=== PATIENT | male | born 1960 | race Caucasian/White ===

== ENCOUNTER → 2018-03-23 | Outpatient (CLI) | payer BC ==
--- NOTE | 2018-03-23 10:17 | CT ---
EXAMINATION TYPE: CT abdomen pelvis w con DATE OF EXAM: 03/23/2018 COMPARISON: NONE HISTORY: Lower abdominal pain/pelvic pain-bilaterally CT DLP: 3487 mGycm Automated exposure control for dose reduction was used. TECHNIQUE: Helical acquisition of images from the lung bases through the pelvis have been completed. CONTRAST: Performed with Oral Contrast and with IV Contrast, patient injected with 100 mL of Isovue 300. FINDINGS: LUNG BASES: There is a calcified nodule in the left lower lobe, calcified left hilar nodes are presen t compatible with old granulomatous disease. Coronary artery calcifications are present. No pleural o r pericardial effusion. AORTA: No significant abnormality is appreciated. LIVER/GB: Liver shows low attenuation compatible with hepatic steatosis. Gallbladder is normal. PANCREAS: Some punctate calcifications could be related to chronic pancreatitis, there is no evident mass or pseudocyst formation. SPLEEN: No significant abnormality is seen. ADRENALS: No significant abnormality is seen. KIDNEYS: No significant abnormality is seen. REPRODUCTIVE ORGANS: No significant abnormality is seen BOWEL: Difficult to exclude a mucosal lesion, if bowel surveillance has not been performed, it shoul d be considered. The appendix is normal. There is no bowel obstruction. Suspect right inguinal hernia greater than left containing fat. FREE AIR: No Free Air visible. ASCITES: None visible. PELVIC ADENOPATHY: None visualized. RETROPERITONEAL ADENOPATHY: No Retroperitoneal Adenopathy visible. URINARY BLADDER: No significant abnormality is seen. OSSEOUS STRUCTURES: Degenerative disc disease noted in the lumbar spine IMPRESSION: INGUINAL HERNIA BILATERALLY AND ADDITIONAL FINDINGS ABOVE, CORRELATE
== END | disposition home or self-care (01) ==
LOC: RADCTMAIN 08:01
PROVIDERS: ATTEND Family Medicine
DX: K40.90 Unilateral inguinal hernia, without obstruction or gangrene, not specified as recurrent (principal)
CPT/HCPCS: 74177; Q9967

== ENCOUNTER → 2020-05-15 | Outpatient (CLI) | payer BC ==
--- NOTE | 2020-05-15 19:57 | HP ---
HISTORY AND PHYSICAL Patient to be admitted to undergo cardiac catheterization on 05/17/2020. Mr. Escobar is a 59-year-old male with a history of diabetes and hypertension who has been complaining of chest pressure that has been going on for a year, but more frequently now, with some symptoms of dyspnea. He has no prior cardiac history. He denies any dizziness or palpitations. He denies any PND, orthopnea or peripheral edema. He underwent a stress echocardiogram when he had chest discomfort on the treadmill with EKG changes and anteroapical and anteroseptal transient hypokinesis. He has no history of smoking. His coronary risk factors are remarkable for hypertension and diabetes. MEDICATIONS: His medications include aspirin, losartan HCT and metformin in addition to omeprazole. REVIEW OF SYSTEMS: RESPIRATORY SYSTEM: He has no documented history of asthma, emphysema or bronchitis. GI SYSTEM: He has history of gastroesophageal reflux disease. No recent GI bleeding. SYSTEM: No dysuria or hematuria. NERVOUS SYSTEM: No stroke or seizure. PHYSICAL EXAMINATION: This patient is a 59-year-old male, alert, oriented, in no apparent distress. Blood pressure 138/74 with a heart rate in the 80s. HEAD: Normocephalic. Eyes: Sclerae nonicteric. NECK: Good carotid upstroke. No bruit. No jugular venous distention. LUNGS: Clear to auscultation. HEART: Regular rate and rhythm. S1, S2. No S3, with a systolic ejection murmur. No diastolic murmur. No rub. ABDOMEN: Soft, nontender. Positive bowel sounds. No organomegaly. EXTREMITIES: No edema. Intact distal pulses. IMPRESSION: 1. Chest discomfort consistent with cardiac etiology with positive stress test in a patient with known history of diabetes. 2. Hypertension. 3. Diabetes. RECOMMENDATION: I have recommended proceeding with coronary angiography to assess his status and guide his treatment. The rationale behind the procedure, its risks and complication were discussed with the patient, who is in full understanding and agreement. The patient will be initiated on Lopressor 25 mg twice a day. MMODL / IJN: [id number] /
--- NOTE | 2020-05-16 10:14 | ECHOS ---
STRESS ECHOCARDIOGRAM LUMASON: - Vial INDICATIONS: MEDICATIONS: Metformin, Losartan, Omeprazole. BASELINE HEART RATE: 87 BASELINE BLOOD PRESSURE: 138/74 MAXIMUM HEART RATE: 159 MAXIMUM BLOOD PRESSURE: 200/82 85% MPHR: 138 100% MPHR: 162 METS: 8.7 MAXIMUM STAGE REACHED: 3 TOTAL EXERCISE TIME: 7:15 CLINICAL INFORMATION: Baseline rhythm is a sinus mechanism at a rate of 87, normal axis and intervals, normal echocardiogram. Baseline blood pressure 138/74 mmHg. Patient exercised per Yazan protocol for 7 minutes, 15 seconds reaching peak rate of 159 beats per minute which is equal to 98% maximum predicted heart rate. Peak blood pressure 200/82 mmHg. Test was terminated due to fatigue. There was mild chest discomfort. Electrocardiograph monitoring revealed frequent single PVCs. There was a [address]-segment depression in the inferolateral leads that improved gradually in recovery. FINDINGS: Baseline echocardiogram revealed normal wall motion. At peak exercise, there was a moderate-size area of hypokinesis involving the anteroapical and anteroseptal wall with improvement in recovery. IMPRESSION: 1. Average exercise tolerance with frequent PVCs with abnormal electrocardiographic stress testing and chest discomfort. 2. Abnormal stress echocardiogram with evidence of stress-induced ischemia involving the anteroapical and anteroseptal wall, those findings are consistent with stress- induced ischemia in the LAD territory. MMKENNETH / IJN: [id number] / MTDD
== END | disposition home or self-care (01) ==
LOC: RADNMMAIN 09:02
PROVIDERS: ATTEND Family Medicine
DX: I10 Essential (primary) hypertension (principal); E11.9 Type 2 diabetes mellitus without complications
CPT/HCPCS: 93351

== ENCOUNTER 2020-05-17 09:07 | Day surgery (SDC) | payer BC ==
[2020-05-16 08:59] VITALS: BMI 32.8
[~2020-05-17 09:07] MED LIST: ALPRAZolam 0.25 MG TAB PO PRN; ALPRAZolam 0.5 MG TAB PO PRN; ASPIRIN 325 MG TAB PO STA; ATORVASTATIN 80 MG TAB PO STA; NITROGLYCERIN SL TABS 0.4 MG TAB SUBLINGUAL PRN; SODIUM CHLORIDE 0.9% 1,000 ML in EMPTY BAG 1 BAG IV ONE
[2020-05-17 10:01] LABS: Glucose,Whole Blood 135 mg/dL (75-99)
[2020-05-17 10:11] LABS: Basophils # (A) 0.1 k/uL (0-0.2); Basophils % (A) 1 %; Eosinophils # (A) 0.4 k/uL (0-0.7); Eosinophils % (A) 5 %; HCT 46.4 % (39.0-53.0); HGB 15.8 gm/dL (13.0-17.5); Lymphocytes # (A) 1.7 k/uL (1.0-4.8); Lymphocytes % (A) 23 %; MCH 30.3 pg (25.0-35.0); MCHC 34.2 g/dL (31.0-37.0); MCV 88.7 fL (80.0-100.0); Mean Platelet Volume 7.6; Monocytes # (A) 0.5 k/uL (0-1.0); Monocytes % (A) 6 %; Neutrophils # (A) 4.7 k/uL (1.3-7.7); Neutrophils % (A) 63 %; Platelet Count 223 k/uL (150-450); RBC 5.23 m/uL (4.30-5.90); RDW 12.9 % (11.5-15.5); WBC 7.5 k/uL (3.8-10.6)
[2020-05-17] MEDS ORDERED: VERAPAMIL 2.5 MG/ML 2 ML AMP ONE (10:11)
[2020-05-17] MEDS ORDERED: fentaNYL (PF) 50 MCG/ML 2 ML AMP ONE (10:11)
[2020-05-17] MEDS ORDERED: HEPARIN SODIUM 1,000 UN/ML (10ML VL) ONE (10:11)
[2020-05-17] MEDS ORDERED: LIDOCAINE 1% INJ 10MG/ML (20 ML MDV) ONE (10:11)
[2020-05-17 10:16] LABS: African American GFR (CKD) >90 (>60 ml/min/1.73 sqM); Anion Gap 7 mmol/L; Blood Urea Nitrogen 16 mg/dL (9-20); Calcium 9.6 mg/dL (8.4-10.2); Carbon Dioxide 26 mmol/L (22-30); Chloride 105 mmol/L (98-107); Glucose 134 mg/dL (74-99); Non-African American GFR(CKD) >90 (>60 ml/min/1.73 sqM); Potassium 4.4 mmol/L (3.5-5.1); Sodium 138 mmol/L (137-145)
[2020-05-17] MEDS ORDERED: LIDOCAINE 1% INJ 10MG/ML (20 ML MDV) SQ ONE ×2 (10:51→10:58)
[2020-05-17] MEDS ORDERED: fentaNYL (PF) 50 MCG/ML 2 ML AMP IVP ONE (10:51)
[2020-05-17] MEDS ORDERED: MIDAZOLAM 2 MG/2 ML VIAL IVP ONE (10:51)
[2020-05-17] MEDS ORDERED: VERAPAMIL SYRINGE (5 MG/10 ML) INTRAARTER ONE (10:53)
[2020-05-17] MEDS ORDERED: PRASUGREL 10 MG TAB ONE ×2 (11:10)
[2020-05-17] MEDS ORDERED: BIVALIRUDIN BOLUS 250 MG/50 ML IV ONE (11:10)
[2020-05-17] MEDS ORDERED: BIVALIRUDIN 250 MG in SODIUM CHLORIDE 0.9% 50 ML IV ONE (11:10)
[2020-05-17] MEDS ORDERED: PRASUGREL 10 MG TAB PO ONE (11:15)
[2020-05-17] MEDS ORDERED: NITROGLYCERIN 1000MCG/10ML SYRINGE INTRACORON ONE (11:20)
[2020-05-17] MEDS ORDERED: IOPAMIDOL-370 125ML BTL INJ ONE (11:27)
[2020-05-17] MEDS ORDERED: IOPAMIDOL-370 100ML BTL INJ ONE (11:30)
[2020-05-17] MEDS ORDERED: NITROGLYCERIN SL TABS 0.4 MG TAB SUBLINGUAL PRN (11:58)
[2020-05-17] MEDS ORDERED: ATROPINE SULFATE 0.1 MG/ML 10ML SYRINGE IV PRN (11:58)
[2020-05-17] MEDS ORDERED: RX INFO: IV CONTRAST WAS GIVEN 1 EACH MISC MISCELLANE PRN (11:58)
[2020-05-17] MEDS ORDERED: MAG HYDROX/AL HYDROX/SIMETH 30 ML CUP PO PRN (11:58)
[2020-05-17] MEDS ORDERED: ZOLPIDEM 5 MG TAB PO PRN (11:58)
[2020-05-17] MEDS ORDERED: SODIUM CHLORIDE 0.9% 1,000 ML IV SCH (12:00)
[2020-05-17 15:13] LABS: Glucose,Whole Blood 119 mg/dL (75-99)
--- NOTE | 2020-05-17 15:44 | PTCA ---
PERCUTANEOUSTRANS CORORONARY ANGIOGRAPHY Mr. Escobar is a 59-year-old male with a known history of hypertension and diabetes mellitus who presented with symptoms of angina pectoris and abnormal stress test. He had critical stenosis involving the proximal LAD. Discussion was held with the patient regarding coronary artery bypass grafting versus percutaneous revascularization. He was in favor of percutaneous revascularization. The procedure, its risks and complications were discussed with the patient, who was in full understanding and agreement. PROCEDURE DESCRIPTION: A 6-Icelandic FR4 guiding catheter was introduced into the system. After cannulating the left main, a 0.014 balanced medium-weight J-wire was advanced across the lesion, positioned distally, then a 2.5 x 12 mm Emerge NC balloon was advanced and two inflations to a maximum of 10 atmospheres were done. Following that the balloon was removed and a 3.25 x 18 mm Xience Belle stent was deployed and post-dilated at 16 atmospheres. Following that the balloon was removed and a 3.5 x 15 mm NC Emerge balloon was advanced and one inflation at 14 atmospheres was done. After the last inflation, after appropriate wait, the balloon and the guidewire were withdrawn back into the guiding catheter. Images were obtained and repeated. Those images reveal stable successful stenting. At that point, the guiding catheter, the balloon and the guidewire were removed. The sheath was sutured in place. The right radial sheath was removed and hemostasis was obtained with deployment of a TR band. There was no immediate complication. Patient was returned to his room in stable condition. Of note, the patient received Angiomax per protocol as well as oral loading dose of Effient. RESULTS: Successful stenting of the proximal LAD with reduction of stenosis from 95% to 0%. RECOMMENDATION: Patient will be continued on aspirin, Effient and statin. The importance of dual antiplatelet treatment was discussed with the patient and his family, and they are in full understanding and agreement. Duration of sedation was 49 minutes. MMODL / IJN: [id number] /
--- NOTE | 2020-05-17 15:59 | LTR ---
May 17, 2020 To: Dr. Ej Navarro Regarding: Martin Escobar (62) Dear Dr. Navarro: I had the pleasure of performing cardiac catheterization and coronary angioplasty and stenting on Mr. Escobar at [facility] on May 17, and a full copy of the procedure note will be forwarded to you. In brief, he was found to have a chronically occluded right coronary artery with critical stenosis involving the proximal LAD and underwent successful stenting of that vessel. I am hopeful that this procedure will stabilize his status. Thank you again for allowing me to participate in his care. Please feel free to call with any questions. Sincerely yours, Jean Denis M.D. INGRIS / MAGDALENO: [id number] /
--- NOTE | 2020-05-17 16:26 | CC ---
CARDIAC CATHETERIZATION REPORT Mr. Escobar is a 59-year-old male with known history of diabetes, hypertension, who has been complaining of exertional chest discomfort, underwent a stress echocardiogram where he had EKG changes as well as anterior and anteroapical wall ischemia. In view of that, recommendation made regarding cardiac catheterization. The procedures, risks, and complication were discussed with the patient who is in full understanding and agreement. PROCEDURE: Patient was brought to lab coordinator in a fasting semi-sedated state after receiving fentanyl and Benadryl and achieving moderate conscious sedated state using Xylocaine anesthesia and Seldinger technique, a 6-Estonian sheath was introduced in the right radial artery. A 5-Estonian 4 bend right Nahum catheter was introduced. Patient had severe spasm and an episode of asystole with vasovagal at that time. The catheter was removed and using Xylocaine anesthesia and Seldinger technique, a 6-Estonian sheath was introduced in the right femoral artery. Selective right and left coronary angiography performed using 6-Estonian 4 bend right and left Nahum catheter. Multiple views of the coronary artery including hemiaxial views were obtained. Following that, the right Nahum was used to cross the aortic valve and left ventricular end-diastolic pressure was calculated following that catheters were removed, images were reviewed. FINDINGS: FLUOROSCOPY: There was significant calcification involving the proximal left anterior descending artery. LEFT MAIN: This is a large-sized vessel, bifurcating into left circumflex, left anterior descending artery. Left main coronary artery has no evidence of high-grade stenosis. LEFT ANTERIOR DESCENDING ARTERY: This is a large-sized vessel, reaching toward the apex with a wraparound apex segment giving rise to 2 diagonal branch of moderate caliber. In the proximal segment at the takeoff of the first diagonal branch, which is the smallest of the two, he had a 95%-99% stenosis. The rest of the vessel has mild intimal disease of 20% to 30% without any evidence of high-grade stenosis. LEFT CIRCUMFLEX: This is a non dominant vessel, large in caliber, giving rise to 2 obtuse marginal branch. Proximally, the left circumflex has a 20% to 30% plaque. The rest of the vessel has no high-grade stenosis. RIGHT CORONARY ARTERY: This vessel is diffusely diseased and totally occluded in mid segment with minimal antegrade flow. COLLATERALS: There is collateral from the left coronary system toward the right PDA and PLV. LEFT VENTRICULOGRAM: This was not performed. HEMODYNAMICS: There was no gradient across the aortic valve. The left ventricular end- diastolic pressure was 14-18 mmHg. CONCLUSION: 1. Calcified proximal LAD. 2. Critical stenosis involving the proximal LAD. 3. Mild disease in the left circumflex. 4. Chronically occluded right coronary artery with collateral from the left coronary system. RECOMMENDATION: In view of finding anatomy of the chest, the patient both option of coronary bypass grafting or percutaneous revascularization. He was favor percutaneous revascularization. The procedures, risks, and complications were discussed with the patient who is in full understanding and agreement. MMODL / IJN: [id number] /
[2020-05-17] MEDS: METOPROLOL TARTRATE 25 MG TAB PO SCH (20:51)
[2020-05-17] MEDS ORDERED: ATORVASTATIN 80 MG TAB PO SCH (21:00)
[2020-05-17] MEDS ORDERED: EZETIMIBE 10 MG TAB PO SCH (21:00)
[2020-05-17 21:33] LABS: Glucose,Whole Blood 154 mg/dL (75-99)
[2020-05-18 06:32] LABS: African American GFR (CKD) >90 (>60 ml/min/1.73 sqM); Anion Gap 5 mmol/L; Blood Urea Nitrogen 15 mg/dL (9-20); Calcium 9.5 mg/dL (8.4-10.2); Carbon Dioxide 26 mmol/L (22-30); Chloride 107 mmol/L (98-107); Glucose 123 mg/dL (74-99); Non-African American GFR(CKD) >90 (>60 ml/min/1.73 sqM); Potassium 4.2 mmol/L (3.5-5.1); Sodium 138 mmol/L (137-145)
[2020-05-18] MEDS ORDERED: PANTOPRAZOLE 40 MG TABLET PO SCH (07:30)
[2020-05-18] MEDS: METOPROLOL TARTRATE 25 MG TAB PO SCH (08:10)
[2020-05-18 08:43] VITALS: BP 131/77; PULSE 71; RESP 16; TEMP 98.3
[2020-05-18] MEDS ORDERED: ASPIRIN 81 MG PO SCH (09:00)
[2020-05-18] MEDS ORDERED: PRASUGREL 10 MG TAB PO SCH (09:00)
[2020-05-18] MEDS ORDERED: LOSARTAN 50 MG TAB PO SCH (09:00)
--- NOTE | 2020-05-18 10:29 | PN ---
PROGRESS NOTE Mr. Escobar is a 59-year-old male with history of diabetes, history of hypertension and hyperlipidemia who presented with symptoms of angina pectoris, had an abnormal stress echocardiogram, underwent cardiac catheterization, was found to have a chronically occluded right coronary artery with critical stenosis in the proximal LAD, underwent stenting of the LAD. He is feeling better this morning. He is ambulating without chest pain. He denies any dizziness or palpitation. He denies any nausea. He denies any cough or fever. He is in sinus mechanism. Continues to be on aspirin once a day, Effient 10 mg daily, Zetia 10 mg daily, Lipitor 80 mg daily, losartan 100 mg daily, hydrochlorothiazide 25 mg daily, and metoprolol tartrate 25 mg twice a day. PHYSICAL EXAMINATION: Blood pressure 135/70 with a heart in 70. LUNGS: Clear. HEART: Regular rate and rhythm, S1, S2. No S3. No rub. ABDOMEN: Soft, nontender. EXTREMITIES: No edema. Right radial pulse intact. EKG revealed no acute changes. LAB DATA: Revealed BUN and creatinine 15 and 0.7, potassium 4.2. IMPRESSION: 1. Status post stenting of the LAD. 2. Chronic occluded right coronary artery. 3. Hypertension. 4. Hyperlipidemia. 5. Diabetes mellitus. RECOMMENDATION: Patient will be discharged home today and followed as an outpatient. MMKENNETH / SOURAVN: [id number] /
== END 2020-05-18 09:14 | disposition home or self-care (01) ==
LOC: CATHCVL 09:07 → 3NCARDOBS 15:22 → CATHCVL 05-18 09:14
PROVIDERS: ATTEND Internal Medicine Interventional Cardiology
DX: I25.10 Atherosclerotic heart disease of native coronary artery without angina pectoris (principal); I25.82 Chronic total occlusion of coronary artery; E11.9 Type 2 diabetes mellitus without complications; I10 Essential (primary) hypertension; E78.5 Hyperlipidemia, unspecified; Z79.82 Long term (current) use of aspirin; Z79.899 Other long term (current) drug therapy
CPT/HCPCS: 93458; 85347; 80048 ×2; 85025; C9600; C1769 ×4; C1725 ×2; C1894 ×2; C1874; J2250; J2001; J3010; J0583; Q9967 ×2

== ENCOUNTER → 2021-08-08 | Outpatient (CLI) | payer BC ==
[~2021-08-08] MED LIST changes: -ALPRAZolam 0.25 MG TAB PO PRN; -ALPRAZolam 0.5 MG TAB PO PRN; -ASPIRIN 325 MG TAB PO STA; -ATORVASTATIN 80 MG TAB PO STA; +BAMLANIVIMAB (EUA) 700 MG, ETESEVIMAB (EUA) 1,400 MG in SODIUM CHLORIDE 0.9% 50 ML IVPB ONE; -NITROGLYCERIN SL TABS 0.4 MG TAB SUBLINGUAL PRN; -SODIUM CHLORIDE 0.9% 1,000 ML in EMPTY BAG 1 BAG IV ONE; +SODIUM CHLORIDE 0.9% 50 ML IVPB ONE; +SODIUM CHLORIDE 0.9% 500 ML 500 ML in EMPTY BAG 1 BAG IV PRN
[2021-08-08 07:59] VITALS: RESP 16
[2021-08-08 09:45] VITALS: BP 141/84; PULSE 99; TEMP 98.8
== END | disposition home or self-care (01) ==
LOC: PROCWHC3 07:34
PROVIDERS: ATTEND Nurse Practitioner Adult Health
DX: U07.1 COVID-19 (principal)
CPT/HCPCS: 96360; J3490; M0245

== ENCOUNTER 2024-03-12 07:45 | Day surgery (SDC) | payer OTHER ==
[~2024-03-12 07:45] MED LIST changes: +ALPRAZolam 0.25 MG TAB PO PRN; +ALPRAZolam 0.5 MG TAB PO PRN; +ASPIRIN 325 MG TAB PO ONE; -BAMLANIVIMAB (EUA) 700 MG, ETESEVIMAB (EUA) 1,400 MG in SODIUM CHLORIDE 0.9% 50 ML IVPB ONE; +NITROGLYCERIN SL TABS 0.4 MG TAB SUBLINGUAL PRN; +SODIUM CHLORIDE 0.9% 1,000 ML in EMPTY BAG 1 BAG IV SCH; -SODIUM CHLORIDE 0.9% 50 ML IVPB ONE; -SODIUM CHLORIDE 0.9% 500 ML 500 ML in EMPTY BAG 1 BAG IV PRN
[2024-03-12 08:18] VITALS: RESP 16; TEMP 97.7
[2024-03-12] MEDS: SODIUM CHLORIDE 0.9% 1,000 ML IV ONE (08:18)
[2024-03-12] MEDS ORDERED: VERAPAMIL 2.5 MG/ML 2 ML AMP ONE (09:07)
[2024-03-12] MEDS ORDERED: LIDOCAINE 1% INJ 10MG/ML (20 ML MDV) ONE (09:07)
[2024-03-12] MEDS ORDERED: fentaNYL (PF) 50 MCG/ML 2 ML AMP ONE (09:19)
[2024-03-12] MEDS: MIDAZOLAM 2 MG/2 ML VIAL IVP ONE (09:42)
[2024-03-12] MEDS: fentaNYL (PF) 50 MCG/ML 2 ML AMP IVP ONE (09:42)
[2024-03-12] MEDS ORDERED: HEPARIN SODIUM 1,000 UN/ML (10ML VL) ONE (09:44)
[2024-03-12] MEDS: LIDOCAINE 1% INJ 10MG/ML (20 ML MDV) SQ ONE (09:46)
[2024-03-12] MEDS: VERAPAMIL SYRINGE (5 MG/10 ML) INTRAARTER ONE (09:49)
[2024-03-12] MEDS: HEPARIN SODIUM 1,000 UN/ML (10ML VL) IVP ONE (09:55)
[2024-03-12] MEDS: IOPAMIDOL-370 200ML BTL INJ ONE (10:15)
[2024-03-12] MEDS ORDERED: RX INFO: IV CONTRAST WAS GIVEN 1 EACH MISC MISCELLANE PRN (10:17)
--- NOTE | 2024-03-12 10:22 | P.CARDCATH ---
Date of Procedure: 03/12/24 Description of Procedure: Cardiac Catheterization: The patient is a 63-year-old male with known history of CAD, hypertension, hyperlipidemia and diabetes mellitus who has been complaining of progressive dyspnea on exertion and had an abnormal MPI. Recommendations were made regarding cardiac catheterization, the risks and the complications were discussed with the patient who is in full understanding and agreement. Procedure Description: Patient was brought to screedman/laborer in fasting semi-sedated state after receiving Fentanyl and Benadryl achieiving moderate conscious sedated state. Using Xylocaine Anesthesia and modified Seldinger technique, a 6-Macedonian sheath was introduced in the right radial artery . Subsequently, selective coronary angiography was performed using a 5-Macedonian 3.5 bend Nahum catheter. Multiple views of the coronary artery including hemiaxial views were obtained. The 5 Macedonian pigtail catheter was used to cross the aortic valve and LVEDP was calculated. Following that, catheter and sheath were removed. Hemostasis was obtained with deployment of vascular band . There was no immediate complication. Patient was returned to room in stable condition. Of note, the patient received a total of 4500 units of intravenous heparin as well as intra-arterial verapamil. Findings: Left main: This is a large size vessel, bifurcating to left circumflex and LAD, left main has no obstructive disease LAD: This is a large size vessel, reaching to the apex with a wraparound apex segment giving rise to a moderately sized diagonal branch in the midsegment. The LAD proximally has a stent that has a 10 to 20% in-stent restenosis the rest of the vessel has no high-grade stenosis Left circumflex: This is a large codominant vessel giving rise to a large obtuse marginal branch and distally branching to a PDA and a PLV. The left circumflex prior to the takeoff of the obtuse marginal branch has a 40% plaque with no progression compared to 2020. RCA: This is a codominant vessel, chronically occluded in the proximal segment with no significant antegrade flow and collateral from the left system to the PDA and the PLV Left Ventriculogram: Not performed Hemodynamics: There was no gradient across aortic valve, LVEDP was 14-16 mmHg Conclusion: 1. Chronically occluded proximal RCA with collateral from the left system 2. Patent stent in the proximal LAD with no significant in-stent restenosis 3. Mild to moderate disease in the proximal left circumflex with no progression 4. Codominant system Recommendations: I have recommended to continue medical therapy with aggressive coronary risks modification. There is no progression of disease in the left circumflex territory. The findings and the recommendations were discussed with the patient and the family and they were in full understanding and agreement. Duration of sedation is 20 minutes.
[2024-03-12] MEDS ORDERED: SODIUM CHLORIDE 0.9% 1,000 ML IV SCH (10:30)
[2024-03-12 16:07] VITALS: BP 115/69; PULSE 77
[2024-03-12] MEDS ORDERED: EZETIMIBE 10 MG TAB PO SCH (21:00)
[2024-03-12] MEDS ORDERED: SERTRALINE 25 MG TAB PO SCH (21:00)
[2024-03-12] MEDS ORDERED: METOPROLOL TARTRATE 25 MG TAB PO SCH (21:00)
[2024-03-12] MEDS ORDERED: MONTELUKAST 10 MG TAB PO SCH (21:00)
[2024-03-13] MEDS ORDERED: ASPIRIN 81 MG PO SCH (09:00)
[2024-03-13] MEDS ORDERED: LOSARTAN 50 MG TAB PO SCH (09:00)
[2024-03-15 06:44] LABS: Glucose,Whole Blood 101 mg/dL (70-110)
== END 2024-03-12 14:08 | disposition home or self-care (01) ==
LOC: CATHCVL 07:45
PROVIDERS: ATTEND Internal Medicine Interventional Cardiology
DX: I25.10 Atherosclerotic heart disease of native coronary artery without angina pectoris (principal); I10 Essential (primary) hypertension; E78.5 Hyperlipidemia, unspecified; E11.9 Type 2 diabetes mellitus without complications; Z95.5 Presence of coronary angioplasty implant and graft; Z79.84 Long term (current) use of oral hypoglycemic drugs; Z79.899 Other long term (current) drug therapy
CPT/HCPCS: 93458; C1769 ×3; C1894; J2250; J2001; J3010; J1644; Q9967

== ENCOUNTER 2025-02-01 20:27 | Inpatient (IN) | payer BC, OTHER ==
--- NOTE | 2025-02-01 20:42 | ED ---
SOB HPI - General Chief Complaint: Shortness of Breath Stated Complaint: IRMA Time Seen by Provider: 02/01/25 20:37 Source: patient, RN notes reviewed, old records reviewed Mode of arrival: ambulatory Limitations: no limitations - History of Present Illness Initial Comments: This is a 64-year-old male to the ER for evaluation this patient presents today for evaluation of severe shortness of breath Long recent car ride but now with severe fever tachycardia and dyspnea with hypoxia. Patient has been on home O2 since arrival [place] with coronavirus. Patient comes to the ER today as symptoms have just progressively worsened MD Complaint: shortness of breath, cough, anxiety -: week(s) Severity: severe Severity scale (1-10): 9 Quality: aching Consistency: constant Improves With: nothing Worsens With: nothing Known History Of: COPD, asthma Context: recent URI, recent illness Associated Symptoms: chest pain, pain with inspiration, cough, sputum production Treatments Prior to Arrival: none - Related Data Home Medications Medication Instructions Recorded Confirmed Ezetimibe [Zetia] 10 mg PO DAILY 01/05/16 02/02/25 Losartan Potassium 100 mg PO DAILY 05/16/20 02/02/25 Omeprazole 40 mg PO PC-SUPPER 05/16/20 02/02/25 Thiamine HCl [Vitamin B-1] 100 mg PO DAILY 05/16/20 02/02/25 Metoprolol Tartrate [Lopressor] 50 mg PO BID 05/17/20 02/02/25 Fluticasone/Umeclidin/Vilanter 1 puff INHALATION RT-DAILY 03/10/24 02/02/25 [Trelegy Ellipta 200-62.5-25] Montelukast [Singulair] 10 mg PO DAILY 03/10/24 02/02/25 Rosuvastatin Calcium 20 mg PO DAILY 03/10/24 02/02/25 Albuterol Sulfate [Albuterol 1 puff INHALATION RT-Q4H PRN 02/02/25 02/02/25 Sulfate Hfa] Previous Rx's Medication Instructions Recorded Aspirin EC [Ecotrin Low Dose] 81 mg PO DAILY #30 tablet. 01/06/16 Nitroglycerin Sl Tabs [Nitrostat] 0.4 mg SUBLINGUAL Q5M PRN #25 tab 05/18/20 Cefdinir 300 mg PO Q12HR 5 Days #10 cap 02/04/25 predniSONE See Taper PO DAILY 20 Days #50 tab 02/04/25 Allergies Allergy/AdvReac Type Severity Reaction Status Date / Time atorvastatin [From Lipitor] AdvReac Unknown Verified 02/02/25 09:38 Review of Systems ROS Statement: Those systems with pertinent positive or pertinent negative responses have been documented in the HPI. ROS Other: All systems not noted in ROS Statement are negative. Past Medical History Past Medical History: Diabetes Mellitus, GERD/Reflux, Hyperlipidemia, Hypertension Additional Past Medical History / Comment(s): HAD STRESS TEST 05/15/20-GETS SOB MORE FREQ. LATELY, POSSIBLE UPPER HEART BLOCKAGE History of Any Multi-Drug Resistant Organisms: None Reported Past Surgical History: No Surgical Hx Reported Additional Past Surgical History / Comment(s): lasix EYE SX. BILAT CATARACT REMOVAL WITH LENS IMPLANT. COLONOSCOPY Past Anesthesia/Blood Transfusion Reactions: No Reported Reaction Date of Last Stent Placement:: 2019 Past Psychological History: No Psychological Hx Reported Smoking Status: Never smoker Past Alcohol Use History: None Reported Past Drug Use History: None Reported - Past Family History Father Family Medical History: Cancer Additional Family Medical History / Comment(s): AT AGE 86 WITH PROSTATE CA Mother Family Medical History: Myocardial Infarction ([place]) General Exam Limitations: no limitations General appearance: alert, in no apparent distress, anxious Head exam: Present: atraumatic, normocephalic, normal inspection Eye exam: Present: normal appearance, PERRL, EOMI. Absent: scleral icterus, conjunctival injection, periorbital swelling ENT exam: Present: normal exam, mucous membranes moist Neck exam: Present: normal inspection. Absent: tenderness, meningismus, lymphadenopathy Respiratory exam: Present: normal lung sounds bilaterally, respiratory distress, wheezes, accessory muscle use, decreased breath sounds, prolonged expiratory. Absent: rales, rhonchi, stridor Cardiovascular Exam: Present: normal rhythm, tachycardia, normal heart sounds. Absent: systolic murmur, diastolic murmur, rubs, gallop, clicks GI/Abdominal exam: Present: soft, normal bowel sounds. Absent: distended, tenderness, guarding, rebound, rigid Extremities exam: Present: normal inspection, full ROM, normal capillary refill. Absent: tenderness, pedal edema, joint swelling, calf tenderness Back exam: Present: normal inspection Neurological exam: Present: alert, oriented X3, CN II-XII intact Psychiatric exam: Present: normal affect, normal mood Skin exam: Present: warm, dry, intact, normal color. Absent: rash Course Vital Signs 02/01/25 02/01/25 02/01/25 20:28 20:39 20:46 Temperature 102.0 F H Pulse Rate 131 H 124 H Respiratory 34 H 24 Rate Blood Pressure 157/100 O2 Sat by Pulse 79 L Oximetry 02/01/25 02/01/25 02/01/25 21:05 21:10 22:14 Temperature 103.0 F H 102.5 F H Pulse Rate 125 H 125 H 126 H Respiratory 22 20 Rate Blood Pressure 152/93 130/87 O2 Sat by Pulse 94 L Oximetry 02/01/25 02/01/25 02/02/25 23:13 23:24 02:06 Temperature 98.3 F Pulse Rate 133 H 130 H 113 H Respiratory 18 Rate Blood Pressure 140/90 O2 Sat by Pulse 92 L Oximetry 02/02/25 02/02/25 02/02/25 06:45 08:54 12:48 Temperature 97.1 F L Pulse Rate 107 H 105 H 92 Respiratory 18 18 18 Rate Blood Pressure 114/80 127/92 144/99 O2 Sat by Pulse 95 95 95 Oximetry 02/02/25 02/02/25 16:55 17:08 Temperature 97.5 F L Pulse Rate 98 Respiratory 18 Rate Blood Pressure 148/90 O2 Sat by Pulse 97 Oximetry - Reevaluation(s) Reevaluation #1: 02/01/25 22:28 Medical records reviewed Reevaluation #2: 02/01/25 22:28 Patient symptoms mildly improved Reevaluation #3: 02/01/25 22:28 Patient informed of results questions answered Reevaluation #4: Was pt. sent in by a medical professional or institution (, PA, CAR WASHER, urgent care, hospital, or detention...) When possible be specific @ -no Did you speak to anyone other than the patient for history (EMS, parent, family, police, friend...)? What history was obtained from this source @ -no Did you review nursing and triage notes (agree or disagree)? Why? @ -agree Are old charts reviewed (outside hosp., previous admission, EMS record, old EKG, old radiological studies, urgent care reports/EKG's, detention records)? Report findings @ -yes Differential Diagnosis (chest pain, altered mental status, abdominal pain women, abdominal pain men, vaginal bleeding, weakness, fever, dyspnea, syncope, headache, dizziness, GI bleed, back pain, seizure, CVA, palpatations, mental health, musculoskeletal)? @ -prior EKG interpreted by me (3pts min.). @ -yes X-rays interpreted by me (1pt min.). @ -yes multifocal bilateral pneumonia CT interpreted by me (1pt min.). @ -no U/S interpreted by me (1pt. min.). @ -no What testing was considered but not performed or refused? (CT, X-rays, U/S, labs)? Why? @ -none What meds were considered but not given or refused? Why? @ -none Did you discuss the management of the patient with other professionals (professionals i.e. , PA, CAR WASHER, lab, RT, psych nurse, social sciences professor, plastics technician, teacher, hotel security officer, top case assembler)? Give summary @ -no Was smoking cessation discussed for >3mins.? @ -no Was critical care preformed (if so, how long)? @ -yes31 Were there social determinants of health that impacted care today? How? (Homelessness, low income, unemployed, alcoholism, drug addiction, transportation, low edu. Level, literacy, decrease access to med. care, nursing home, rehab)? @ -none Was there de-escalation of care discussed even if they declined (Discuss DNR or withdrawal of care, Hospice)? DNR status @ -no What co-morbidities impacted this encounter? (DM, HTN, Smoking, COPD, CAD, Cancer, CVA, ARF, Chemo, Hep., AIDS, mental health diagnosis, sleep apnea, morbid obesity)? @ -none Was patient admitted / discharged? Hospital course, mention meds given and route, prescriptions, significant lab abnormalities, going to OR and other pe rtinent info. @ - 64 female to the ER for evaluation of severe COPD which she has from underlying COVID. Patient is positive for fever positive coronavirus will place on IV antibiotics and admit for supportive care hypoxia and pulmonology evaluation Admitted Undiagnosed new problem with uncertain prognosis? @ -no Drug Therapy requiring intensive monitoring for toxicity (Heparin, Nitro, Insulin, Cardizem)? @ -no Were any procedures done? @ -no Diagnosis/symptom? @ -COPD, COVID, hypoxia Acute, or Chronic, or Acute on Chronic? @ -Acute Uncomplicated (without systemic symptoms) or Complicated (systemic symptoms)? @ -Complicated Side effects of treatment? @ -no Exacerbation, Progression, or Severe Exacerbation? @ -exacerbation Poses a threat to life or bodily function? How? (Chest pain, [place], [place], pneumonia, PE, COPD, DKA, ARF, appy, cholecystitis, CVA, Diverticulitis, Homicidal, Suic idal, threat to staff... and all critical care pts) @ -yes with hypoxia Reevaluation #5: Differential Dyspnea: Coronary syndrome, arrhythmia, tamponade, asthma, COPD, pulmonary embolism, pneumonia, pneumothorax, pulmonary effusion, anaphylaxis, diabetic ketoacidosis, flailed chest, pulmonary contusion, diaphragmatic rupture, anemia, neuromuscular, this is not meant to be an all-inclusive list. Differential Fever: Pneumonia, viral URI, endocarditis, myocarditis, pericarditis, otitis, sinusitis, peritonsillar Abscess, retropharyngeal Abscess, epiglottitis, peritonitis, appendicitis, [place] cystitis, diverticulitis, hepatitis, colitis, UTI, PID, TOA, pyelonephritis, prostatitis, epididymitis, meningitis, encephalitis, pulmonary embolism, CVA, thyroid storm, pancreatitis, adrenal crisis, cavernous sinus thrombosis, this is not meant to be an all-inclusive list. - Consultations Consultation #1: Spoke with [facility] who agrees to admit this patient Medical Decision Making - Medical Decision Making 64 female to the ER for evaluation of severe COPD which she has from underlying COVID. Patient is positive for fever positive coronavirus will place on IV antibiotics and admit for supportive care hypoxia and pulmonology evaluation - Lab Data Result diagrams: 02/03/25 08:16 02/04/25 03:24 Lab Results 02/01/25 02/01/25 02/01/25 Range/Units 20:44 20:44 20:44 WBC 17.64 H (4.50-10.00) 10*3/uL RBC 6.01 H (4.40-5.60) 10*6/uL Hgb 18.0 H (13.0-17.0) g/dL Hct 52.9 H (39.6-50.0) % MCV 88.0 (80.0-97.0) fL MCH 30.0 (27.0-32.0) pg MCHC 34.0 (32.0-37.0) g/dL Plt Count 226 (140-440) 10*3/uL MPV 9.9 (9.5-12.2) fL Immature Gran % (Auto) 0.3 % Neutrophils % 81.3 % Lymphocytes % 9.1 % Monocytes % 6.5 % Eosinophils % 2.3 % Basophils % 0.5 % Immature Gran # 0.06 H (0.00-0.04) 10*3/uL Neutrophils # 14.33 H (1.80-7.70) 10*3/uL Lymphocytes # 1.61 (0.90-5.00) 10*3/uL Monocytes # 1.15 H (0.20-1.00) 10*3/uL Eosinophils # 0.40 H (0.04-0.35) 10*3/uL Basophils # 0.09 (0.00-0.10) 10*3/uL PT 11.6 (10.0-12.5) sec INR 1.1 (<1.2) APTT 22.4 (22.0-30.0) sec D-Dimer 0.46 (<0.60) mg/L FEU VBG pH (7.31-7.41) VBG pCO2 (37-51) mmHg VBG HCO3 (24-28) mmol/L Sodium 137 (137-145) mmol/L Potassium 5.6 H (3.5-5.1) mmol/L Chloride 99 (98-107) mmol/L Carbon Dioxide 26 (22-30) mmol/L Anion Gap 12 mmol/L BUN 24 H (9-20) mg/dL Creatinine 0.78 (0.66-1.25) mg/dL Est GFR (CKD-EPI)AfAm >90 (>60 ml/min/1.73 sqM) Est GFR (CKD-EPI)NonAf >90 (>60 ml/min/1.73 sqM) Glucose 117 H (74-99) mg/dL Lactic Ac Sepsis Rflx Plasma Lactic Acid Angelo (0.7-2.0) mmol/L Calcium 10.6 H (8.4-10.2) mg/dL Magnesium 1.6 (1.6-2.3) mg/dL Total Bilirubin 2.1 H (0.2-1.3) mg/dL AST 49 (17-59) U/L ALT 37 (4-49) U/L Alkaline Phosphatase 80 (38-126) U/L Troponin I (0.000-0.034) ng/mL NT-Pro-B Natriuret Pep 444 pg/mL Total Protein 9.1 H (6.3-8.2) g/dL Albumin 4.8 (3.5-5.0) g/dL Influenza Type A (PCR) (Not Detectd) Influenza Type B (PCR) (Not Detectd) RSV (PCR) (Not Detectd) SARS-CoV-2 (PCR) (Not Detectd) 02/01/25 02/01/25 02/01/25 Range/Units 20:44 20:44 20:48 WBC (4.50-10.00) 10*3/uL RBC (4.40-5.60) 10*6/uL Hgb (13.0-17.0) g/dL Hct (39.6-50.0) % MCV (80.0-97.0) fL MCH (27.0-32.0) pg MCHC (32.0-37.0) g/dL Plt Count (140-440) 10*3/uL MPV (9.5-12.2) fL Immature Gran % (Auto) % Neutrophils % % Lymphocytes % % Monocytes % % Eosinophils % % Basophils % % Immature Gran # (0.00-0.04) 10*3/uL Neutrophils # (1.80-7.70) 10*3/uL Lymphocytes # (0.90-5.00) 10*3/uL Monocytes # (0.20-1.00) 10*3/uL Eosinophils # (0.04-0.35) 10*3/uL Basophils # (0.00-0.10) 10*3/uL PT (10.0-12.5) sec INR (<1.2) APTT (22.0-30.0) sec D-Dimer (<0.60) mg/L FEU VBG pH (7.31-7.41) VBG pCO2 (37-51) mmHg VBG HCO3 (24-28) mmol/L Sodium (137-145) mmol/L Potassium (3.5-5.1) mmol/L Chloride (98-107) mmol/L Carbon Dioxide (22-30) mmol/L Anion Gap mmol/L BUN (9-20) mg/dL Creatinine (0.66-1.25) mg/dL Est GFR (CKD-EPI)AfAm (>60 ml/min/1.73 sqM) Est GFR (CKD-EPI)NonAf (>60 ml/min/1.73 sqM) Glucose (74-99) mg/dL Lactic Ac Sepsis Rflx Plasma Lactic Acid Angelo 2.2 H* (0.7-2.0) mmol/L Calcium (8.4-10.2) mg/dL Magnesium (1.6-2.3) mg/dL Total Bilirubin (0.2-1.3) mg/dL AST (17-59) U/L ALT (4-49) U/L Alkaline Phosphatase (38-126) U/L Troponin I <0.012 (0.000-0.034) ng/mL NT-Pro-B Natriuret Pep pg/mL Total Protein (6.3-8.2) g/dL Albumin (3.5-5.0) g/dL Influenza Type A (PCR) Not Detected (Not Detectd) Influenza Type B (PCR) Not Detected (Not Detectd) RSV (PCR) Not Detected (Not Detectd) SARS-CoV-2 (PCR) Detected A (Not Detectd) 02/01/25 02/01/25 Range/Units 21:16 21:31 WBC (4.50-10.00) 10*3/uL RBC (4.40-5.60) 10*6/uL Hgb (13.0-17.0) g/dL Hct (39.6-50.0) % MCV (80.0-97.0) fL MCH (27.0-32.0) pg MCHC (32.0-37.0) g/dL Plt Count (140-440) 10*3/uL MPV (9.5-12.2) fL Immature Gran % (Auto) % Neutrophils % % Lymphocytes % % Monocytes % % Eosinophils % % Basophils % % Immature Gran # (0.00-0.04) 10*3/uL Neutrophils # (1.80-7.70) 10*3/uL Lymphocytes # (0.90-5.00) 10*3/uL Monocytes # (0.20-1.00) 10*3/uL Eosinophils # (0.04-0.35) 10*3/uL Basophils # (0.00-0.10) 10*3/uL PT (10.0-12.5) sec INR (<1.2) APTT (22.0-30.0) sec D-Dimer (<0.60) mg/L FEU VBG pH 7.46 H (7.31-7.41) VBG pCO2 35 L (37-51) mmHg VBG HCO3 25 (24-28) mmol/L Sodium (137-145) mmol/L Potassium (3.5-5.1) mmol/L Chloride (98-107) mmol/L Carbon Dioxide (22-30) mmol/L Anion Gap mmol/L BUN (9-20) mg/dL Creatinine (0.66-1.25) mg/dL Est GFR (CKD-EPI)AfAm (>60 ml/min/1.73 sqM) Est GFR (CKD-EPI)NonAf (>60 ml/min/1.73 sqM) Glucose (74-99) mg/dL Lactic Ac Sepsis Rflx Y Plasma Lactic Acid Angelo (0.7-2.0) mmol/L Calcium (8.4-10.2) mg/dL Magnesium (1.6-2.3) mg/dL Total Bilirubin (0.2-1.3) mg/dL AST (17-59) U/L ALT (4-49) U/L Alkaline Phosphatase (38-126) U/L Troponin I (0.000-0.034) ng/mL NT-Pro-B Natriuret Pep pg/mL Total Protein (6.3-8.2) g/dL Albumin (3.5-5.0) g/dL Influenza Type A (PCR) (Not Detectd) Influenza Type B (PCR) (Not Detectd) RSV (PCR) (Not Detectd) SARS-CoV-2 (PCR) (Not Detectd) - EKG Data -: EKG Interpreted by Me (EKG is sinus tachycardia 129 TX 136 QRS 84 QTc 410) - Radiology Data Radiology results: report reviewed (Chest x-ray is positive for bilateral pneumonia), image reviewed Critical Care Time Critical Care Time: Yes Total Critical Care Time: 31 Disposition Clinical Impression: Acute exacerbation of chronic obstructive pulmonary disease, Asthma with acute exacerbation, Acute respiratory failure, Acute respiratory distress syndrome in adult, Pneumonia, Fever, COVID, Chest pain, Hypoxia Disposition: ADMITTED IP TO THIS HOSP Condition: Fair Is patient prescribed a controlled substance at d/c from ED?: No Time of Disposition: 22:30
[2025-02-01] MEDS: IPRATROPIUM-ALBUTEROL 3 ML NEB INHALATION STA ×2 (20:46→23:12)
--- NOTE | 2025-02-01 20:52 | XR ---
EXAMINATION TYPE: XR chest 1V portable DATE OF EXAM: 02/01/2025 8:47 PM COMPARISON: Chest radiographs from 01/05/2020 TECHNIQUE: XR chest 1V portable Portable AP radiograph of the chest. CLINICAL INDICATION:Male, 64 years old with history of sob; FINDINGS: Lungs/Pleura: No pleural effusion or pneumothorax. Scattered patchy airspace opacities throughout bot h lungs. Pulmonary vascularity: Unremarkable. Heart/mediastinum: Cardiomediastinal silhouette is unremarkable. Atherosclerotic calcifications are seen in the aorta. Musculoskeletal: No acute osseous pathology. IMPRESSION: Diffuse patchy airspace opacities concerning for pneumonia. [facility], , 02/01/2025 8:50 PM
[2025-02-01] MEDS: AZITHROMYCIN 500 MG in SODIUM CHLORIDE 0.9% 250 ML IVPB STA (20:54)
[2025-02-01] MEDS: SODIUM CHLORIDE 0.9% 1,000 ML IV SCH (20:56)
[2025-02-01] MEDS: MORPHINE SULFATE 2 MG/ML SYRINGE IVP STA (20:57)
[2025-02-01] MEDS: methylPREDNISolone SOD SUCCI 125 MG/2 ML VIAL IV STA (20:58)
[2025-02-01 21:00] LABS: Basophils # (A) 0.09 10*3/uL (0.00-0.10); Basophils % (A) 0.5 %; Eosinophils % (A) 2.3 %; HCT 52.9 % (39.6-50.0); Lymphocytes # (A) 1.61 10*3/uL (0.90-5.00); Lymphocytes % (A) 9.1 %; Mean Platelet Volume 9.9 fL (9.5-12.2); Monocytes # (A) 1.15 10*3/uL (0.20-1.00); Monocytes % (A) 6.5 %; Neutrophils # (A) 14.33 10*3/uL (1.80-7.70); Neutrophils % (A) 81.3 %; Platelet Count 226 10*3/uL (140-440); RBC 6.01 10*6/uL (4.40-5.60); RDW 13.3 % (11.5-14.5); WBC 17.64 10*3/uL (4.50-10.00)
[2025-02-01] MEDS: BENZONATATE 100 MG CAP PO STA (21:09)
[2025-02-01 21:14] LABS: ALT 37 U/L (4-49); African American GFR (CKD) >90 (>60 ml/min/1.73 sqM); Anion Gap 12 mmol/L; Blood Urea Nitrogen 24 mg/dL (9-20); Calcium 10.6 mg/dL (8.4-10.2); Carbon Dioxide 26 mmol/L (22-30); Chloride 99 mmol/L (98-107); Glucose 117 mg/dL (74-99); INR 1.1 (<1.2); Non-African American GFR(CKD) >90 (>60 ml/min/1.73 sqM); Partial Thromboplastin Time 22.4 sec (22.0-30.0); Prothrombin Time 11.6 sec (10.0-12.5); Sodium 137 mmol/L (137-145); Total Bilirubin 2.1 mg/dL (0.2-1.3)
[2025-02-01 21:15] LABS: AST 49 U/L (17-59); Albumin 4.8 g/dL (3.5-5.0); Alkaline Phosphatase 80 U/L (38-126); Magnesium 1.6 mg/dL (1.6-2.3); Potassium 5.6 mmol/L (3.5-5.1); Total Protein 9.1 g/dL (6.3-8.2)
[2025-02-01 21:21] LABS: NT-Pro-B-Type Natriuretic Pept 444 pg/mL
[2025-02-01 21:36] LABS: VBG PH 7.46 (7.31-7.41)
[2025-02-01 21:57] LABS: Influenza A Not Detected (Not Detectd); Influenza B Not Detected (Not Detectd); RSV Not Detected (Not Detectd)
[2025-02-01] MEDS ORDERED: PNEUMONIA PROTOCOL UTILIZED 1 EACH MISC PO PRN (22:23)
[2025-02-01] MEDS: DEXAMETHASONE SOD PHOSPHATE 10 MG/ML 1 ML VIAL IVP STA (23:10)
[2025-02-01] MEDS: ACETAMINOPHEN IV (For NPO) 1,000 MG in EMPTY BAG 1 BAG IVPB STA (23:11)
[2025-02-01] MEDS: IBUPROFEN IV 800 MG in SODIUM CHLORIDE 0.9% 250 ML IV ONE (23:50)
[2025-02-01] MEDS: LACTATED RINGERS 1,000 ML IV SCH (23:53)
[2025-02-01] MEDS: LACTATED RINGERS 500 ML IV ONE (23:56)
[2025-02-01] MEDS ORDERED: DEXTROSE 50% SYRINGE 50 ML IVP PRN ×2 (23:59)
[2025-02-02] MEDS ORDERED: ALBUTEROL HFA INHALER INHALATION PRN (00:15)
[2025-02-02] MEDS: LACTATED RINGERS 1,000 ML IV ONE (00:38)
[2025-02-02] MEDS ORDERED: IPRATROPIUM-ALBUTEROL 3 ML NEB INHALATION PRN (00:44)
--- NOTE | 2025-02-02 00:58 | P.HPIM ---
History of Present Illness H&P Date: 02/01/25 History of present illness; Patient is a 64-year-old male with chronic hypoxic respiratory failure due to long COVID, CAD with stent placement who presents with shortness of breath and rigors. Patient states that over the last 2 weeks he has had some congestion and has been taking allergy medication after a recent trip to [place]. He states his symptoms have progressed and today he began to have rigors. He does have productive cough only when using breathing treatments and discomfort w ith inspiration. He states he has a long history of hospitalizations due to COVID-pneumonia which caused fibrosis of his lungs, and followed up with pulmonology. He continues to take breathing treatments regularly. He is maintained on 2 to 3 L of oxygen daily. Currently he denies symptoms of chest pain, diaphoresis. Spoke with the ER physician, patient admission was accepted by internal medicine service for treatment. REVIEW OF SYSTEMS: Pertinent positives and negatives noted in HPI. PHYSICAL EXAMINATION: VITAL SIGNS: Reviewed GENERAL: Resting comfortably in bed. EYES: PERRL, no scleral injection or icterus. HENT: Normocephalic, atraumatic, hearing grossly intact, moist mucous membranes. NECK: No tracheal deviation, full range of motion. CARDIOVASCULAR: S1 and S2 present. Tachycardia. no murmurs, rubs, or gallops. PULMONARY: rhonchi bilaterally. ABDOMEN: Soft, nontender, nondistended. No palpable organomegaly. NEUROLOGICAL: Alert and oriented. Gross neurological examination with no apparent focal deficits. MUSCULOSKELETAL: No apparent joint swelling and deformities. EXTREMITIES: No apparent cyanosis, clubbing. No pedal edema. SKIN: No apparent rashes. ER FINDINGS: EKG independently interpreted showed sinus tachycardia heart rate of 129, QTc 410, no ST segment elevation or depression seen, no T-wave inversions seen. Chest x-ray done independently interpreted showed diffuse patchy airspace opacities concerning for pneumonia Assessment and Plan: In summary, patient is a 64-year-old male with acute on chronic hypoxic respiratory failure due to long COVID, CAD with stent placement who presents with shortness of breath and rigors. # Sepsis due to COVID-pneumonia #Acute on chronic hypoxic respiratory failure secondary to suspected bacterial pneumonia # Restrictive lung disease due to history of COVID WBC 17.6, lactic acid 2.2, COVID-positive, Tmax 103.0 F, pulse 131, respiratory rate 34 VBG pH 7.46, pCO2 35 decadron 6 mg IVP qday for 10 days Begin azithromycin 500 mg IVPB daily, ceftriaxone 2 g IVPB daily Begin DuoNebs 4 times daily as needed, resume home inhaler Blood and sputum culture, procalcitonin, Legionella ordered Holding antihypertensive for now Continue to monitor vitals closely Continue IV LR at 130 mL/h Continue O2, maintain greater than 92% saturation Pulmonology consulted #Hyperkalemia #Prerenal azotemia, as above IV fluids as above Monitor CMP K5.6 , NO EKG CHANGES OF HYPERACUTE T WAVE REGULAR INSULIN 10 U , DEXTROSE 50% 1 AMP RECHECK IN MORNING #Diabetes mellitus, type 2 Holding oral medications Begin Accu-Cheks and low-dose sliding scale, monitor for hypoglycemia Chronic Medical Conditions: Hyperlipidemia CAD with stent placement to LAD Hypertension GERD Continue home medications, hold antihypertensives due to sepsis DVT ppx: Subq Lovenox 40 meq daily Code status: Full code F: IV fluids as above E: Replete as needed N: Heart healthy diet A: Ambulatory Anticipated discharge place: Home Anticipated discharge time: Greater than 2 days Darius Brand MD Internal Medicine Resident, PGY1 Dictation was produced using [employer] dictation software. Please excuse any grammatical, word or spelling errors. I have seen and evaluated the patient today. I Discussed the case with the resident and agree with the resident's findings I edited the assessment and plan as necessary as documented in the resident's note. Past Medical History Past Medical History: Diabetes Mellitus, GERD/Reflux, Hyperlipidemia, Hypertension History of Any Multi-Drug Resistant Organisms: None Reported Past Surgical History: No Surgical Hx Reported Additional Past Surgical History / Comment(s): lasix EYE SX. BILAT CATARACT REMOVAL WITH LENS IMPLANT. COLONOSCOPY Past Anesthesia/Blood Transfusion Reactions: No Reported Reaction Date of Last Stent Placement:: 2019 Past Psychological History: No Psychological Hx Reported Smoking Status: Never smoker Past Alcohol Use History: None Reported Past Drug Use History: None Reported - Past Family History Father Family Medical History: Cancer Additional Family Medical History / Comment(s): AT AGE 86 WITH PROSTATE CA Mother Family Medical History: Myocardial Infarction ([place]) Medications and Allergies Home Medications Medication Instructions Recorded Confirmed Type Ezetimibe [Zetia] 10 mg PO HS 01/04/03/10/24 History Aspirin EC [Ecotrin Low Dose] 81 mg PO DAILY #30 tablet. 01/06/16 03/12/24 Rx Losartan Potassium 100 mg PO DAILY 05/16/20 03/10/24 History Omeprazole 40 mg PO DAILY 05/16/20 03/10/24 History Thiamine HCl [Vitamin B-1] 1 tab PO HS 05/16/20 03/12/24 History Metoprolol Tartrate [Lopressor] 25 mg PO BID 05/17/20 03/10/24 History Nitroglycerin Sl Tabs [Nitrostat] 0.4 mg SUBLINGUAL Q5M PRN #25 tab 05/18/20 03/12/24 Rx Albuterol Sulfate [Ventolin HFA] 2 puff INHALATION DIRECTED 03/10/24 03/10/24 History Empagliflozin/Linagliptin 1 tab PO DAILY 03/10/24 03/12/24 History [Glyxambi 25 mg-5 mg Tablet] Fluticasone/Umeclidin/Vilanter 1 puff INHALATION DIRECTED 03/10/24 03/10/24 History [Trelegy Ellipta 200-62.5-25] Montelukast [Singulair] 10 mg PO HS 03/10/24 03/12/24 History Rosuvastatin Calcium 20 mg PO HS 03/10/24 03/12/24 History Sertraline [Zoloft] 25 mg PO HS 03/10/24 03/12/24 History Allergies Allergy/AdvReac Type Severity Reaction Status Date / Time atorvastatin [From Lipitor] AdvReac Unknown Verified 02/01/25 20:31 Physical Exam Vitals: Vital Signs Temp Pulse Resp BP Pulse Ox 02/01/25 23:24 130 H 02/01/25 23:13 133 H 02/01/25 22:14 102.5 F H 126 H 20 130/87 94 L 02/01/25 21:10 103.0 F H 125 H 22 152/93 02/01/25 21:05 125 H 02/01/25 20:46 124 H 02/01/25 20:39 24 02/01/25 20:28 102.0 F H 131 H 34 H 157/100 79 L Intake and Output 02/01/25 02/01/25 02/02/25 14:59 22:59 06:59 Other: Weight 86.636 kg Results CBC & Chem 7: 02/01/25 20:44 02/01/25 20:44 Labs: Abnormal Lab Results - Last 24 Hours (Table) 02/01/25 02/01/25 02/01/25 Range/Units 20:44 20:44 20:44 WBC 17.64 H (4.50-10.00) 10*3/uL RBC 6.01 H (4.40-5.60) 10*6/uL Hgb 18.0 H (13.0-17.0) g/dL Hct 52.9 H (39.6-50.0) % Immature Gran # 0.06 H (0.00-0.04) 10*3/uL Neutrophils # 14.33 H (1.80-7.70) 10*3/uL Monocytes # 1.15 H (0.20-1.00) 10*3/uL Eosinophils # 0.40 H (0.04-0.35) 10*3/uL VBG pH (7.31-7.41) VBG pCO2 (37-51) mmHg Potassium 5.6 H (3.5-5.1) mmol/L BUN 24 H (9-20) mg/dL Glucose 117 H (74-99) mg/dL Plasma Lactic Acid Angelo 2.2 H* (0.7-2.0) mmol/L Calcium 10.6 H (8.4-10.2) mg/dL Total Bilirubin 2.1 H (0.2-1.3) mg/dL Total Protein 9.1 H (6.3-8.2) g/dL SARS-CoV-2 (PCR) (Not Detectd) 02/01/25 02/01/25 Range/Units 20:48 21:31 WBC (4.50-10.00) 10*3/uL RBC (4.40-5.60) 10*6/uL Hgb (13.0-17.0) g/dL Hct (39.6-50.0) % Immature Gran # (0.00-0.04) 10*3/uL Neutrophils # (1.80-7.70) 10*3/uL Monocytes # (0.20-1.00) 10*3/uL Eosinophils # (0.04-0.35) 10*3/uL VBG pH 7.46 H (7.31-7.41) VBG pCO2 35 L (37-51) mmHg Potassium (3.5-5.1) mmol/L BUN (9-20) mg/dL Glucose (74-99) mg/dL Plasma Lactic Acid Angelo (0.7-2.0) mmol/L Calcium (8.4-10.2) mg/dL Total Bilirubin (0.2-1.3) mg/dL Total Protein (6.3-8.2) g/dL SARS-CoV-2 (PCR) Detected A (Not Detectd)
[2025-02-02] MEDS ORDERED: DEXAMETHASONE SOD PHOSPHATE 4 MG/ML 1 ML VIAL IVP SCH (01:00)
[2025-02-02] MEDS: INSULIN REGULAR 100 UNIT/ML VIAL (IV) IV ONE (01:38)
[2025-02-02] MEDS: DEXTROSE 50% SYRINGE 50 ML IVP STA (01:45)
--- NOTE | 2025-02-02 02:15 | P.CNPUL ---
History of Present Illness Consult date: 02/02/25 Requesting physician: Cornell Milian Reason for consult: COPD Chief complaint: Shortness of breath History of present illness: Patient is a 64-year-old male with past medical history significant for COPD, chronic oxygen dependence on 2 to 3 L while at home, diabetes mellitus, hypertension, hyperlipidemia, CAD with previous stent. Presented to emergency department yesterday with a chief complaint of shortness of breath, cough, and high fevers. He has had some recent travel to [place] to visit his daughter. Him and his did become sick with URI-like symptoms such as nasal congestion, runny nose, sore throat, cough, approximately 2-3 weeks ago. Symptoms initially started improve, then worsened over the last week or so. Developed severe shortness of breath, productive cough, and high fevers over the last 24 hours. On arrival to the emergency department, did test positive for COVID. Chest x-ray showing multifocal patchy airspace opacities concerning for pneumonia. CBC: WBC count 17.6, hemoglobin 18, platelets 226. CMP: Sodium 137, potassium 5.6, chloride 99, serum bicarb 26, BUN 24, creatinine 0.78, glucose 117. Lactic was 2.2 and is down to 1.2. LFTs not elevated. Troponin less than 0.012. NT proBNP not significantly elevated. Patient currently being evaluated in the emergency department. Endorses above-mentioned symptoms. States that he previously had severe COVID infection and hospitalization back in 2020, and was treated with antibodies. Currently, the patient is resting comfortably on 3 L/min nasal cannula. States he has been chronically oxygen dependent since then. 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 Uses a Trelegy inhaler with albuterol nebs [id number] and as needed albuterol rescue inhaler. He is not vaccinated for COVID. Continues to have high fevers with a Tmax of 103 F. Piggybacking Tylenol and ibuprofen. Vital signs are stable. Review of Systems Constitutional: Reports chills, Reports fatigue, Reports fever, Denies night sweats, Denies poor appetite, Denies weakness, Denies weight gain, Denies weight loss Ears, nose, mouth and throat: Reports as per HPI Cardiovascular: Denies chest pain, Denies leg edema, Denies lightheadedness, Denies orthopnea, Denies palpitations, Denies paroxysmal nocturnal dyspnea, Denies syncope Respiratory: Reports congestion, Reports cough with sputum, Reports dyspnea, Reports home oxygen, Denies hemoptysis, Denies wheezing Gastrointestinal: Denies abdominal pain, Denies constipation, Denies diarrhea, Denies nausea, Denies vomiting Genitourinary: Denies dysuria Musculoskeletal: Denies limitation of motion Integumentary: Denies rash Neurological: Denies headaches, Denies seizures, Denies syncope Psychiatric: Denies anxiety, Denies depression Past Medical History Past Medical History: Diabetes Mellitus, GERD/Reflux, Hyperlipidemia, Hypertension Additional Past Medical History / Comment(s): HAD STRESS TEST 05/15/20-GETS SOB MORE FREQ. LATELY, POSSIBLE UPPER HEART BLOCKAGE History of Any Multi-Drug Resistant Organisms: None Reported Past Surgical History: No Surgical Hx Reported Additional Past Surgical History / Comment(s): lasix EYE SX. BILAT CATARACT REMOVAL WITH LENS IMPLANT. COLONOSCOPY Past Anesthesia/Blood Transfusion Reactions: No Reported Reaction Date of Last Stent Placement:: 2019 Past Psychological History: No Psychological Hx Reported Smoking Status: Never smoker Past Alcohol Use History: None Reported Past Drug Use History: None Reported - Past Family History Father Family Medical History: Cancer Additional Family Medical History / Comment(s): AT AGE 86 WITH PROSTATE CA Mother Family Medical History: Myocardial Infarction ([place]) Medications and Allergies Home Medications Medication Instructions Recorded Confirmed Type Ezetimibe [Zetia] 10 mg PO DAILY 01/05/16 02/02/25 History Aspirin EC [Ecotrin Low Dose] 81 mg PO DAILY #30 tablet. 01/06/16 02/02/25 Rx Losartan Potassium 100 mg PO DAILY 05/16/20 02/02/25 History Omeprazole 40 mg PO PC-SUPPER 05/16/20 02/02/25 History Thiamine HCl [Vitamin B-1] 100 mg PO DAILY 05/16/20 02/02/25 History Metoprolol Tartrate [Lopressor] 50 mg PO BID 05/17/20 02/02/25 History Nitroglycerin Sl Tabs [Nitrostat] 0.4 mg SUBLINGUAL Q5M PRN #25 tab 05/18/20 02/02/25 Rx Fluticasone/Umeclidin/Vilanter 1 puff INHALATION RT-DAILY 03/10/24 02/02/25 History [Trelegy Ellipta 200-62.5-25] Montelukast [Singulair] 10 mg PO DAILY 03/10/24 02/02/25 History Rosuvastatin Calcium 20 mg PO DAILY 03/10/24 02/02/25 History Albuterol Sulfate [Albuterol 1 puff INHALATION RT-Q4H PRN 02/02/25 02/02/25 History Sulfate Hfa] Allergies Allergy/AdvReac Type Severity Reaction Status Date / Time atorvastatin [From Lipitor] AdvReac Unknown Verified 02/02/25 09:38 Physical Exam Vitals: Vital Signs Temp Pulse Resp BP Pulse Ox 02/01/25 23:24 130 H 02/01/25 23:13 133 H 02/01/25 22:14 102.5 F H 126 H 20 130/87 94 L 02/01/25 21:10 103.0 F H 125 H 22 152/93 02/01/25 21:05 125 H 02/01/25 20:46 124 H 02/01/25 20:39 24 02/01/25 20:28 102.0 F H 131 H 34 H 157/100 79 L Intake and Output 02/01/25 02/01/25 02/02/25 14:59 22:59 06:59 Other: Weight 86.636 kg GENERAL EXAM: Alert, 64-year-old male, on 3 L/min nasal cannula, comfortable in no apparent distress. HEAD: Normocephalic and atraumatic EYES: Normal reaction of pupils, equal size. NOSE: Clear with pink turbinates. THROAT: No erythema or exudates. NECK: No masses, no JVD. CHEST: No chest wall deformity. LUNGS: Equal air entry with no crackles, wheeze, rhonchi or dullness. No conversational dyspnea or accessory muscle use while at rest CVS: S1 and S2 normal with no audible murmur, regular rhythm. No extra heart sounds ABDOMEN: No hepatosplenomegaly, active bowel sounds, no guarding or rigidity. SPINE: No scoliosis or deformity SKIN: No rashes CENTRAL NERVOUS SYSTEM: No focal deficits, tone is normal in all 4 extremities. EXTREMITIES: There is no peripheral edema, clubbing, or cyanosis. Peripheral pulses are intact. Results - Laboratory Findings CBC and BMP: 02/02/25 07:11 02/02/25 07:11 PT/INR, D-dimer PT 11.6 sec (10.0-12.5) 02/01/25 20:44 INR 1.1 (<1.2) 02/01/25 20:44 D-Dimer 0.46 mg/L FEU (<0.60) 02/01/25 20:44 Abnormal lab findings: Abnormal Labs 02/01/25 02/01/25 02/01/25 20:44 20:44 20:44 WBC 17.64 H RBC 6.01 H Hgb 18.0 H Hct 52.9 H Immature Gran # 0.06 H Neutrophils # 14.33 H Monocytes # 1.15 H Eosinophils # 0.40 H VBG pH VBG pCO2 Potassium 5.6 H BUN 24 H Glucose 117 H Plasma Lactic Acid Angelo 2.2 H* Calcium 10.6 H Total Bilirubin 2.1 H Total Protein 9.1 H SARS-CoV-2 (PCR) 02/01/25 02/01/25 20:48 21:31 WBC RBC Hgb Hct Immature Gran # Neutrophils # Monocytes # Eosinophils # VBG pH 7.46 H VBG pCO2 35 L Potassium BUN Glucose Plasma Lactic Acid Angelo Calcium Total Bilirubin Total Protein SARS-CoV-2 (PCR) Detected A - Diagnostic Findings Chest x-ray: image reviewed Assessment and Plan Assessment: Acute COVID-pneumonia with possible superimposed bacterial infection and sepsis Acute dyspnea, secondary to above Chronic obstructive pulmonary disease, based on previous spirometry from 2022, the patient has an FEV1 of 47% of predicted, FVC of 38% of predicted and his spirometry essentially restricted with an FEV1/FVC ratio of 95. Oxygen dependent post COVID-19 related pneumonia/fibrosis. 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, oxygen dependent Chronic hypoxemic respiratory failure, normally maintained on 2 to 3 L while at home Hypertension History of hyperlipidemia Diabetes mellitus type 2 History of CAD with previous PCI/stents Anxiety/depression Plan: Patient's medications, labs, chest x-ray reviewed COVID positive by PCR Multifocal patchy opacities noted Currently requiring supplemental oxygen in the form of 3 L/min nasal cannula Started on IV push Decadron Also, empirically covered on azithromycin and Rocephin Sputum culture collected Procalcitonin level pending Continue supportive care Continue of bronchodilators Add Symbicort inhaler, may substitute for Trelegy inhaler if made available Tylenol as needed for fevers DVT prophylaxis with Lovenox GI prophylaxis: Protonix We will continue to follow I have personally seen and examined the patient, performed the documentation and the assessment and plan as written. Number of minutes spent on the visit:20 On 02/02/2025, I am doing a joint evaluation along with the nurse practitioner and this is a joint evaluation that was done along with him. This evaluation was done and 32 minutes. The patient was seen in the emergency department along with the nurse practitioner. The patient presented to us with worsening shortness of breath. The patient is known to us. Of taking care of him back in 2020 following a COVID-19 related pneumonia that caused significant postinfectious scarring in the patient's lungs and the patient has been oxygen dependent since. Following that, the patient used to see Dr. Gordillo and he subsequently switched his care to Dr. Croft. He is coming in with worsening shortness of breath, worsening cough and congestion. Chest x-ray shows chronic bilateral fibrotic changes. Oxygenation remains impaired and the patient remains on oxygen between 3 and 4 L/min nasal cannula. Slightly tachycardic. No hemoptysis. No pleurisy. The white cell count is 11.5 with a hemoglobin of 15. Electrolytes are all within normal limits. The patient tested positive for COVID-19 and his Legionella urine antigen was also negative. The rest of the viral screen was also negative. I believe the chest x-ray findings are essentially chronic. airfit superimposed pneumonia/viral pneumonia/bacterial pneumonia is possible although considered to be less likely. The patient will be covered empirically with IV Rocephin and Zithromax. The patient will be also given IV Solu-Medrol 60 mg every 6 hours. Will monitor his progress. His proca lcitonin level is not elevated. Will make further recommendations based on his progression during this current hospitalization. Time with Patient: Greater than 30
[2025-02-02] MEDS: ALBUTEROL HFA INHALER INHALATION SCH (05:43)
[2025-02-02 07:30] LABS: Glucose,Whole Blood 177 mg/dL (70-110)
[2025-02-02 07:35] LABS: Basophils # (A) 0.01 10*3/uL (0.00-0.10); Basophils % (A) 0.1 %; HCT 44.6 % (39.6-50.0); HGB 15.1 g/dL (13.0-17.0); Lymphocytes # (A) 0.77 10*3/uL (0.90-5.00); Lymphocytes % (A) 6.7 %; MCH 29.8 pg (27.0-32.0); MCHC 33.9 g/dL (32.0-37.0); Mean Platelet Volume 9.5 fL (9.5-12.2); Monocytes # (A) 0.12 10*3/uL (0.20-1.00); Neutrophils # (A) 10.63 10*3/uL (1.80-7.70); Neutrophils % (A) 91.9 %; Platelet Count 183 10*3/uL (140-440); RBC 5.07 10*6/uL (4.40-5.60); RDW 13.3 % (11.5-14.5); WBC 11.57 10*3/uL (4.50-10.00)
[2025-02-02] MEDS: SYMBICORT 160-4.5 MCG INHALER INHALATION SCH (07:38)
[2025-02-02] MEDS: PANTOPRAZOLE 40 MG TABLET PO SCH (07:39)
[2025-02-02] MEDS: INSULIN LISPRO (HumaLOG) 100 UNIT/ML 10 mL VL SQ SCH (07:39)
[2025-02-02 07:47] LABS: ALT 34 U/L (4-49); AST 37 U/L (17-59); African American GFR (CKD) >90 (>60 ml/min/1.73 sqM); Albumin 3.6 g/dL (3.5-5.0); Alkaline Phosphatase 74 U/L (38-126); Anion Gap 8 mmol/L; Blood Urea Nitrogen 24 mg/dL (9-20); Carbon Dioxide 23 mmol/L (22-30); Chloride 106 mmol/L (98-107); Glucose 188 mg/dL (74-99); Magnesium 1.7 mg/dL (1.6-2.3); Non-African American GFR(CKD) >90 (>60 ml/min/1.73 sqM); Potassium 4.5 mmol/L (3.5-5.1); Sodium 137 mmol/L (137-145); Total Bilirubin 1.7 mg/dL (0.2-1.3); Total Protein 6.9 g/dL (6.3-8.2)
--- NOTE | 2025-02-02 08:35 | XR ---
EXAMINATION TYPE: XR chest 1V portable DATE OF EXAM: 02/02/2025 4:34 AM COMPARISON: 02/01/2025 CLINICAL INDICATION: Male, 64 years old with history of pneumonia, , FINDINGS: Heart upper limits of normal in size. Diffuse medium and coarse interstitial and patchy opacities per sist without any significant change. No sizable pleural effusion. No appreciable pneumothorax. IMPRESSION: Ongoing extensive diffuse interstitial and patchy bilateral infiltrates. [facility], Workstation: [facility], 02/02/2025 8:32 AM
[2025-02-02] MEDS: ASPIRIN 81 MG PO SCH (08:56)
[2025-02-02] MEDS: METOPROLOL TARTRATE 25 MG TAB PO SCH (08:56)
[2025-02-02] MEDS: LOSARTAN 50 MG TAB PO SCH (08:56)
[2025-02-02] MEDS: DEXAMETHASONE SOD PHOSPHATE 10 MG/ML 1 ML VIAL IVP SCH (08:57)
[2025-02-02] MEDS ORDERED: LOSARTAN 50 MG TAB PO SCH (09:00)
[2025-02-02] MEDS: FUROSEMIDE 10 MG/ML 2 ML VIAL IV SCH (09:00)
--- NOTE | 2025-02-02 09:02 | P.CRDCN ---
History of Present Illness History of present illness: HISTORY OF PRESENT ILLNESS: This is a 64-year-old male with a past medical history significant for chronic hypoxic respiratory failure on home oxygen, coronary artery disease, hypertensio n, hyperlipidemia, diabetes. Patient follows in the office with Dr. Denis. We have been asked to see the patient in consultation for CHF. Patient examined at the bedside in the emergency room. Patient states that he was in [place] last week when he started to feel sick. He reports having a lot of nasal congestion. He states that he was taking allergy medications but did not have much improvement. He presented to the hospital for further evaluation. Patient was found to be positive for COVID. Patient currently denies any chest pain or pressure. He does report shortness of breath when lying flat and states his oxygen drops into the 80s. He does report that he has been on home oxygen since having COVID a few years ago which he states damaged his lungs. DIAGNOSTICS: - EKG reveals sinus tachycardia with T wave inversions in inferior and anterior leads. - Chest xray diffuse patchy airspace opacities concerning for pneumonia. - Laboratory data: WBC 11.57. Hemoglobin 15.1. Platelet count 183. Sodium 137. Potassium 4.5. BUN 24. Creatinine 0.69. Troponin negative x 1. proBNP 444. Procalcitonin less than 0.20. - Home medication list has not been verified at the time of this dictation - Most recent echocardiogram obtained in May 2024 revealing normal EF, mild MR, mild TR - Cardiac catheterization history: February 2024 revealing chronically occluded proximal RCA with collaterals from the left. Patent stent within the proximal LAD with no significant in-stent restenosis. Mild to moderate disease in the proximal left circumflex with no progression. Medical management was recommended. REVIEW OF SYSTEMS: At the time of my exam: CONSTITUTIONAL: Denies fever or chills. HEENT: Denies blurred vision, vision changes, or eye pain. Denies hemoptysis CARDIOVASCULAR: Denies chest pain. Reports orthopnea. Denies PND. Denies palpitations RESPIRATORY: Reports shortness of breath. GASTROINTESTINAL: Denies abdominal pain. Denies nausea or vomiting. HEMATOLOGIC: Denies bleeding disorders. GENITOURINARY: Denies any blood in urine. SKIN: Denies pruitis. Denies rash. PHYSICAL EXAM: VITAL SIGNS: Reviewed. GENERAL: Well-developed in no acute distress. HEENT: Head is normocephalic. Pupils are equal, round. Sclerae anicteric. Mucous membranes of the mouth are moist. Neck supple. No JVD or thyromegaly LUNGS: Respirations even and unlabored. Lungs with bibasilar crackles HEART: Regular rate and rhythm. S1 and S2 heard. ABDOMEN: Soft. Nondistended. Nontender. EXTREMITIES: Normal range of motion. No clubbing or cyanosis. Peripheral pulses intact. No lower extremity edema NEUROLOGIC: Awake and alert. Oriented x 3. ASSESSMENT: Acute COVID-pneumonia Mild acute heart failure with preserved EF, likely secondary to above Chronic hypoxic respiratory failure on home oxygen Coronary artery disease with previous stenting to the LAD Known chronically occluded proximal RCA with collaterals from the left History of COPD History of hypertension History of hyperlipidemia History of diabetes PLAN: Obtain 2D echo to assess cardiac structure and function Begin IV Lasix 20 mg every 12 hours Daily weights, accurate intake and output, monitoring of kidney function Resume home cardiac medications Resume losartan at a lower dose of 50 mg daily Continue telemetry monitoring. Continue to monitor blood pressure Further recommendations pending patient course Nurse practitioner note has been reviewed by physician. Signing provider agrees with the documented findings, assessment, and plan of care documented by RN ENDOSCOPY as a scribe. Past Medical History Past Medical History: Diabetes Mellitus, GERD/Reflux, Hyperlipidemia, Hypertension Additional Past Medical History / Comment(s): HAD STRESS TEST 05/15/20-GETS SOB MORE FREQ. LATELY, POSSIBLE UPPER HEART BLOCKAGE History of Any Multi-Drug Resistant Organisms: None Reported Past Surgical History: No Surgical Hx Reported Additional Past Surgical History / Comment(s): lasix EYE SX. BILAT CATARACT REMOVAL WITH LENS IMPLANT. COLONOSCOPY Past Anesthesia/Blood Transfusion Reactions: No Reported Reaction Date of Last Stent Placement:: 2019 Past Psychological History: No Psychological Hx Reported Smoking Status: Never smoker Past Alcohol Use History: None Reported Past Drug Use History: None Reported - Past Family History Father Family Medical History: Cancer Additional Family Medical History / Comment(s): AT AGE 86 WITH PROSTATE CA Mother Family Medical History: Myocardial Infarction ([place]) Medications and Allergies Home Medications Medication Instructions Recorded Confirmed Type Ezetimibe [Zetia] 10 mg PO HS 01/05/16 03/10/24 History Aspirin EC [Ecotrin Low Dose] 81 mg PO DAILY #30 tablet. 01/06/16 03/12/24 Rx Losartan Potassium 100 mg PO DAILY 05/16/20 03/10/24 History Omeprazole 40 mg PO DAILY 05/16/20 03/10/24 History Thiamine HCl [Vitamin B-1] 1 tab PO HS 05/16/20 03/12/24 History Metoprolol Tartrate [Lopressor] 25 mg PO BID 05/17/20 03/10/24 History Nitroglycerin Sl Tabs [Nitrostat] 0.4 mg SUBLINGUAL Q5M PRN #25 tab 05/18/20 03/12/24 Rx Albuterol Sulfate [Ventolin HFA] 2 puff INHALATION DIRECTED 03/10/24 03/10/24 History Empagliflozin/Linagliptin 1 tab PO DAILY 03/10/24 03/12/24 History [Glyxambi 25 mg-5 mg Tablet] Fluticasone/Umeclidin/Vilanter 1 puff INHALATION DIRECTED 03/10/24 03/10/24 History [Trelegy Ellipta 200-62.5-25] Montelukast [Singulair] 10 mg PO HS 03/10/24 03/12/24 History Rosuvastatin Calcium 20 mg PO HS 03/10/24 03/12/24 History Sertraline [Zoloft] 25 mg PO HS 03/10/24 03/12/24 History Allergies Allergy/AdvReac Type Severity Reaction Status Date / Time atorvastatin [From Lipitor] AdvReac Unknown Verified 02/01/25 20:31 Physical Exam Vitals: Vital Signs Temp Pulse Resp BP Pulse Ox 02/02/25 08:54 105 H 18 127/92 95 02/02/25 06:45 97.1 F L 107 H 18 114/80 95 02/02/25 02:06 98.3 F 113 H 18 140/90 92 L 02/01/25 23:24 130 H 02/01/25 23:13 133 H 02/01/25 22:14 102.5 F H 126 H 20 130/87 94 L 02/01/25 21:10 103.0 F H 125 H 22 152/93 02/01/25 21:05 125 H 02/01/25 20:46 124 H 02/01/25 20:39 24 02/01/25 20:28 102.0 F H 131 H 34 H 157/100 79 L Intake and Output 02/01/25 02/02/25 02/02/25 22:59 06:59 14:59 Other: Weight 86.636 kg Results 02/02/25 07:11 02/02/25 07:11 Cardiac Enzymes 02/01/25 02/01/25 02/02/25 Range/Units 20:44 20:44 07:11 AST 49 37 (17-59) U/L Troponin I <0.012 (0.000-0.034) ng/mL Coagulation 02/01/25 Range/Units 20:44 PT 11.6 (10.0-12.5) sec APTT 22.4 (22.0-30.0) sec CBC 02/01/25 02/02/25 Range/Units 20:44 07:11 WBC 17.64 H 11.57 H (4.50-10.00) 10*3/uL RBC 6.01 H 5.07 (4.40-5.60) 10*6/uL Hgb 18.0 H 15.1 (13.0-17.0) g/dL Hct 52.9 H 44.6 (39.6-50.0) % Plt Count 226 183 (140-440) 10*3/uL Comprehensive Metabolic Panel 02/01/25 02/02/25 Range/Units 20:44 07:11 Sodium 137 137 (137-145) mmol/L Potassium 5.6 H 4.5 (3.5-5.1) mmol/L Chloride 99 106 (98-107) mmol/L Carbon Dioxide 26 23 (22-30) mmol/L BUN 24 H 24 H (9-20) mg/dL Creatinine 0.78 0.69 (0.66-1.25) mg/dL Glucose 117 H 188 H (74-99) mg/dL Calcium 10.6 H 10.0 (8.4-10.2) mg/dL AST 49 37 (17-59) U/L ALT 37 34 (4-49) U/L Alkaline Phosphatase 80 74 (38-126) U/L Total Protein 9.1 H 6.9 (6.3-8.2) g/dL Albumin 4.8 3.6 (3.5-5.0) g/dL Current Medications Generic Name Dose Route Start Last Admin Trade Name Freq PRN Reason Stop Dose Admin Acetaminophen 650 mg 02/02/25 00:23 Acetaminophen Tab 325 Mg Tab PO Q4HR PRN Fever and/ or Pain Albuterol Sulfate 2 puff 02/02/25 04:00 02/02/25 07:37 Albuterol Hfa Inhaler INHALATION Not Given RT-Q4H JENY Albuterol/Ipratropium 3 ml 02/02/25 00:44 Ipratropium-Albuterol 3 Ml Neb INHALATION RT-QID PRN Shortness Of Breath Or Wheezing Aspirin 81 mg 02/02/25 09:00 02/02/25 08:56 Aspirin 81 Mg PO 81 mg DAILY JENY Administration Budesonide/Formoterol Fumarate 2 puff 02/02/25 08:00 02/02/25 07:38 Symbicort 160-4.5 Mcg Inhaler INHALATION 2 puff RT-BID JENY Administration Dexamethasone Sodium Phosphate 6 mg 02/02/25 09:00 Dexamethasone Sod Phosphate 10 Mg/Ml 1 Ml Vial IVP DAILY [facility] Dextrose/Water 25 ml 02/01/25 23:59 Dextrose 50% Syringe 50 Ml IVP PER PROTOCOL PRN Hypoglycemia Protocol Dextrose/Water 50 ml 02/01/25 23:59 Dextrose 50% Syringe 50 Ml IVP PER PROTOCOL PRN Hypoglycemia Protocol Ezetimibe 10 mg 02/02/25 21:00 Ezetimibe 10 Mg Tab PO HS [facility] Enoxaparin Sodium 40 mg 02/02/25 09:00 Enoxaparin 40 Mg/0.4 Ml Syringe SQ DAILY [facility] Furosemide 20 mg 02/02/25 09:00 Furosemide 10 Mg/Ml 2 Ml Vial IV Q12HR [facility] Ceftriaxone Sodium 2 gm/ 50 mls @ 100 mls/hr 02/02/25 09:00 Dextrose/Water IVPB 02/05/25 09:29 Q24HR [facility] Protocol Azithromycin 500 mg/ Sodium 250 mls @ 250 mls/hr 02/02/25 09:00 Chloride IVPB 02/03/25 09:59 DAILY [facility] Protocol Lactated Ringer's 1,000 mls @ 130 mls/hr 02/01/25 23:30 02/02/25 07:39 Lactated Ringers IV 130 mls/hr .[id number] JENY Administration Insulin Human Lispro 0 unit 02/02/25 07:30 02/02/25 07:39 Insulin Lispro (Humalog) 100 Unit/Ml 10 Ml Vl SQ 2 unit ACHS JENY Administration Protocol Losartan Potassium 50 mg 02/02/25 09:00 02/02/25 08:56 Losartan 50 Mg Tab PO 50 mg DAILY JENY Administration Metoprolol Tartrate 25 mg 02/02/25 09:00 Metoprolol Tartrate 25 Mg Tab PO BID JNEY Miscellaneous Information 1 each 02/01/25 22:23 Pneumonia Protocol Utilized 1 Each Misc PO ONCE PRN Per Protocol Montelukast Sodium 10 mg 02/02/25 21:00 Montelukast 10 Mg Tab PO HS JENY Pantoprazole Sodium 40 mg 02/02/25 07:30 02/02/25 07:39 Pantoprazole 40 Mg Tablet PO 40 mg [id number] JENY Administration Sertraline HCl 25 mg 02/02/25 21:00 Sertraline 25 Mg Tab PO HS JENY Thiamine HCl 100 mg 02/02/25 21:00 Thiamine 100 Mg Tab PO HS JENY Intake and Output 02/01/25 02/02/25 02/02/25 22:59 06:59 14:59 Other: Weight 86.636 kg 02/02/25 07:11 02/02/25 07:11
[2025-02-02] MEDS: cefTRIAXone 2 GM in DEXTROSE 5% IN WATER 50 ML IVPB SCH (09:04)
[2025-02-02] MEDS: ENOXAPARIN 40 MG/0.4 ML SYRINGE SQ SCH (09:06)
[2025-02-02] MEDS: AZITHROMYCIN 500 MG in SODIUM CHLORIDE 0.9% 250 ML IVPB SCH (09:54)
[2025-02-02 12:12] LABS: Glucose,Whole Blood 157 mg/dL (70-110)
--- NOTE | 2025-02-02 12:38 | CA ---
Transthoracic Echo Report Name: Martin Escobar Age: 64 Gender: M : 1960 Exam Date: 02/02/2025 09:09 Exam Location: [facility] Ht (in): 73 Wt (lb): 191 Ordering Physician: Alpa Estrada Attending/Referring Phys: [id number], Sean Water Mechanic Yvonne Espino RDCS Procedure CPT: Indications: LV function, SOB, covid Cardiac Hx: stent Technical Quality: Good Contrast 1: Total Dose (mL): Contrast 2: Total Dose (mL): MEASUREMENTS (Male / Female) Normal Values 2D ECHO LV Diastolic Diameter PLAX 4.2 cm 4.2 - 5.9 / 3.9 - 5.3 cm LV Systolic Diameter PLAX 3.3 cm IVS Diastolic Thickness 1.3 cm 0.6 - 1.0 / 0.6 - 0.9 cm LVPW Diastolic Thickness 1.1 cm 0.6 - 1.0 / 0.6 - 0.9 cm LV Relative Wall Thickness 0.6 RV Internal Dim ED PLAX 4.0 cm LA Systolic Diameter LX 3.9 cm 3.0 - 4.0 / 2.7 - 3.8 cm LV Diastolic Volume MOD BP 69.3 cm??? 67 - 155 / 56 - 104 cm??? LV Systolic Volume MOD BP 29.8 cm??? - 58 / 19 - 49 cm??? LV Ejection Fraction MOD BP 56.9 % >= 55 % LV Cardiac Index MOD BP 2029.8 cm???/min???m??? LV Diastolic Volume MOD 4C 63.6 cm??? LV Systolic Volume MOD 4C 22.8 cm??? LV Ejection Fraction MOD 4C 64.1 % LV Cardiac Index MOD 4C 2096.2 cm???/min???m??? LV Diastolic Length 4C 7.3 cm LV Systolic Length 4C 6.1 cm LV Diastolic Volume MOD 2C 71.5 cm??? LV Systolic Volume MOD 2C 36.7 cm??? LV Ejection Fraction MOD 2C 48.8 % LV Cardiac Index MOD 2C 1794.0 cm???/min???m??? LV Diastolic Length 2C 7.8 cm LV Systolic Length 2C 6.7 cm LA Volume 36.7 cm??? 18 - 58 / 22 - 52 cm??? LA Volume Index 17.3 cm???/m??? 16 - 28 cm???/m??? M-MODE Aortic Root Diameter MM 3.4 cm AV Cusp Separation MM 1.8 cm DOPPLER AV Peak Velocity 227.2 cm/s AV Peak Gradient 20.6 mmHg AV Mean Velocity 152.9 cm/s AV Mean Gradient 10.7 mmHg AV Velocity Time Integral 42.0 cm AI Peak Velocity 466.9 cm/s AI Peak Gradient 87.2 mmHg AI Pressure Half Time 583.9 ms MV Area PHT 6.6 cm??? MV Deceleration Time 130.5 ms TR Peak Velocity 352.7 cm/s TR Peak Gradient 49.8 mmHg Right Ventricular Systolic Press 54.8 mmHg FINDINGS Left Ventricle Left ventricular ejection fraction is estimated at 55-60 %. Left ventricular cavity size normal. Mildly increased septal wall thickness. Normal left ventricular wall motion. Right Ventricle Moderate right ventricular dilatation. Severe pulmonary hypertension. Right ventricular systolic pressure estimated at 55 mm hg. Right Atrium Normal right atrial size. No right atrial thrombus or mass seen. Left Atrium Normal left atrial size. No left atrial thrombus or mass present. Mitral Valve Mitral valve thickened. Trace to mild mitral regurgitation. Aortic Valve Trileaflet aortic valve. Mild aortic stenosis with a peak gradient of 22 mmHg and a mean gradient of 11 mmHg. Tricuspid Valve Structurally normal tricuspid valve. Moderate tricuspid regurgitation. Pulmonic Valve Structurally normal pulmonic valve. No pulmonic regurgitation. Pericardium No pericardial effusion. Aorta Normal size aortic root and proximal ascending aorta. CONCLUSIONS Normal LV size and systolic function. Aortic valve sclerosis with mild gradient across aortic valve. Mild to moderate dilatation of the right ventricle with moderate pulmonary hypertension. Mild mitral and moderate tricuspid regurgitation. No pericardial effusion Previewed by: Dr. Katelynn Peralta MD (Electronically Signed) Final Date: 02 Feb 2025 12:37
[2025-02-02] MEDS: methylPREDNISolone SOD SUCCI 125 MG/2 ML VIAL IV SCH (12:45)
[2025-02-02] MEDS: ACETAMINOPHEN TAB 325 MG TAB PO PRN (16:44)
[2025-02-02 17:05] LABS: Glucose,Whole Blood 198 mg/dL (70-110)
--- NOTE | 2025-02-02 17:23 | P.PN ---
Subjective Progress Note Date: 02/02/25 Hospital Course: Patient is a 64-year-old male with chronic hypoxic respiratory failure due to long COVID, CAD with stent placement who presents with shortness of breath and rigors. Patient states that over the last 2 weeks he has had some congestion and has been taking allergy medication after a recent trip to [place]. He states his symptoms have progressed and today he began to have rigors. He does have productive cough only when using breathing treatments and discomfort with inspiration. He states he has a long history of hospitalizations due to COVID-pneumonia which caused fibrosis of his lungs, and followed up with pulmonology. He continues to take breathing treatments regularly. He is maintained on 2 to 3 L of oxygen daily. Currently he denies symptoms of chest pain, diaphoresis. Spoke with the ER physician, patient admission was accepted by internal medicine service for treatment. Subjective: Patient seen and examined at bedside. No acute events overnight. Still reports shortness of breath with some sputum production. Denies chest pain, nausea or vomiting, belly pain, diarrhea or constipation, lower extremity edema. Pertinent positives and negatives as discussed above, a complete review of systems was performed and all other systems are negative. Vitals: Signs Reviewed Physical Exam: General: nontoxic, no distress, appears at stated age Derm: warm, dry, intact Head: atraumatic, normocephalic, symmetric Eyes: EOMI, anicteric sclera Mouth: no lip lesion, mucus membranes moist Cardiovascular: S1 S2 reg, no murmur, rubs, or gallops Lungs: Crackles heard on the right side of lung, no wheezing/rhonchi/stridor, no use of accessory muscles Abdominal: soft, non-tender to palpataion, no appreciable organomegaly Extremities: no gross muscle atrophy, no edema, no contractures Neuro: Alert, Oriented, CNII-XII grossly intact, gait normal Psych: well appearing, appropriate affect Data Received Today: Pertinent Labs: WBC 11.57, hemoglobin 15.1, hematocrit 44.6, platelets 183, neutrophils 10.63, sodium 137, potassium 4.5, BUN 24, creatinine 0.69, glucose 188, total bili 1.7 Imaging: Chest x-ray independently interpreted showed ongoing extensive diffuse interstitial and patchy bilateral infiltrates. Echocardiogram showed normal left ventricular size and systolic function. Aortic valve sclerosis with mild gradient across aortic valve. Mild to moderate dilatation of the right ventricle with moderate pulmonary hypertension. Mild mitral and moderate tricuspid regurgitation. No pericardial effusion. Assessment and Plan: In summary, patient is a 64-year-old male with acute on chronic hypoxic respiratory failure due to long COVID, CAD with stent placement who presents with shortness of breath and rigors. # Sepsis due to COVID-pneumonia #.Mild acute congestive heart failure exacerbation with preserved ejection fraction #Acute on chronic hypoxic respiratory failure secondary to suspected bacterial pneumonia # Restrictive lung disease due to history of COVID Continue Solu-Medrol 60 mg IV every 6 hours Continue azithromycin 500 mg IVPB daily, ceftriaxone 2 g IVPB daily Continue DuoNebs 4 times daily as needed, resume home inhaler Pending blood and sputum culture results, procalcitonin less than 0.2, troponin less than 0.012, BNP of 444 Continue losartan 50 mg daily and metoprolol titrate 25 mg twice daily Continue to monitor vitals closely Discontinue lactated Ringer's at 130 cc an hour -Continue IV Lasix 20 mg every 12 hours, monitor electrolytes Continue O2, maintain greater than 92% saturation -Cardiology and pulmonology following #Hyperkalemia, resolved #Prerenal azotemia, as above, resolved Potassium of 4.5 Monitor morning CMP Have discontinued lactated Ringer's at 130 cc an hour #Diabetes mellitus, type 2 Holding oral medications Begin Accu-Cheks and low-dose sliding scale, monitor for hypoglycemia Chronic Medical Conditions: Hyperlipidemia CAD with stent placement to LAD Hypertension GERD Continue home medications, hold antihypertensives due to sepsis DVT ppx: Subq Lovenox 40 meq daily Code status: Full code F: IV fluids as above E: Replete as needed N: Heart healthy diet A: Ambulatory Anticipated discharge place: Home Anticipated discharge time: Greater than 2 days I have seen and evaluated the patient today. Discussed with the resident and agree with the residents finding and plan as documented in the resident's note. Changes highlighted in blue font. Objective - Vital Signs Vital signs: Vital Signs Temp 97.1 F L 02/02/25 06:45 Pulse 107 H 02/02/25 06:45 Resp 18 02/02/25 06:45 BP 114/80 02/02/25 06:45 Pulse Ox 95 02/02/25 06:45 FiO2 Intake & Output 02/01/25 02/02/25 02/02/25 18:59 06:59 18:59 Weight 86.636 kg - Labs CBC & Chem 7: 02/02/25 07:11 02/02/25 07:11 Labs: Abnormal Lab Results - Last 24 Hours (Table) 02/01/25 02/01/25 02/01/25 Range/Units 20:44 20:44 20:44 WBC 17.64 H (4.50-10.00) 10*3/uL RBC 6.01 H (4.40-5.60) 10*6/uL Hgb 18.0 H (13.0-17.0) g/dL Hct 52.9 H (39.6-50.0) % Immature Gran # 0.06 H (0.00-0.04) 10*3/uL Neutrophils # 14.33 H (1.80-7.70) 10*3/uL Monocytes # 1.15 H (0.20-1.00) 10*3/uL Eosinophils # 0.40 H (0.04-0.35) 10*3/uL VBG pH (7.31-7.41) VBG pCO2 (37-51) mmHg Potassium 5.6 H (3.5-5.1) mmol/L BUN 24 H (9-20) mg/dL Glucose 117 H (74-99) mg/dL Plasma Lactic Acid Angelo 2.2 H* (0.7-2.0) mmol/L Calcium 10.6 H (8.4-10.2) mg/dL Total Bilirubin 2.1 H (0.2-1.3) mg/dL Total Protein 9.1 H (6.3-8.2) g/dL SARS-CoV-2 (PCR) (Not Detectd) 02/01/25 02/01/25 Range/Units 20:48 21:31 WBC (4.50-10.00) 10*3/uL RBC (4.40-5.60) 10*6/uL Hgb (13.0-17.0) g/dL Hct (39.6-50.0) % Immature Gran # (0.00-0.04) 10*3/uL Neutrophils # (1.80-7.70) 10*3/uL Monocytes # (0.20-1.00) 10*3/uL Eosinophils # (0.04-0.35) 10*3/uL VBG pH 7.46 H (7.31-7.41) VBG pCO2 35 L (37-51) mmHg Potassium (3.5-5.1) mmol/L BUN (9-20) mg/dL Glucose (74-99) mg/dL Plasma Lactic Acid Angelo (0.7-2.0) mmol/L Calcium (8.4-10.2) mg/dL Total Bilirubin (0.2-1.3) mg/dL Total Protein (6.3-8.2) g/dL SARS-CoV-2 (PCR) Detected A (Not Detectd)
[2025-02-02] MEDS ORDERED: NON FORMULARY DRUG (Rosuvastatin Calcium [Rosuvastatin Calcium] 20 MG Tablet) PO SCH (21:00)
[2025-02-02 21:08] LABS: Glucose,Whole Blood 170 mg/dL (70-110)
[2025-02-02] MEDS: EZETIMIBE 10 MG TAB PO SCH (21:20)
[2025-02-02] MEDS: THIAMINE 100 MG TAB PO SCH (21:20)
[2025-02-02] MEDS: MONTELUKAST 10 MG TAB PO SCH (21:21)
[2025-02-02] MEDS: SERTRALINE 25 MG TAB PO SCH (22:25)
[2025-02-03 06:05] LABS: Glucose,Whole Blood 193 mg/dL (70-110)
[2025-02-03 08:30] LABS: Blood Urea Nitrogen 28.4 mg/dL (9.0-27.0); Calcium 9.5 mg/dL (8.7-10.3); Carbon Dioxide 26.6 mmol/L (21.6-31.8); Chloride 104 mmol/L (96-109); Glucose 174 mg/dL (70-110); Potassium 4.6 mmol/L (3.5-5.5); Sodium 140 mmol/L (135-145)
[2025-02-03 08:46] LABS: Basophils # (A) 0.02 10*3/uL (0.00-0.10); Basophils % (A) 0.1 %; HCT 41.8 % (39.6-50.0); HGB 14.1 g/dL (13.0-17.0); Lymphocytes # (A) 0.99 10*3/uL (0.90-5.00); Lymphocytes % (A) 5.9 %; MCH 29.9 pg (27.0-32.0); MCHC 33.7 g/dL (32.0-37.0); MCV 88.7 fL (80.0-97.0); Mean Platelet Volume 10.4 fL (9.5-12.2); Monocytes # (A) 0.58 10*3/uL (0.20-1.00); Monocytes % (A) 3.5 %; Neutrophils % (A) 89.4 %; Platelet Count 195 10*3/uL (140-440); RBC 4.71 10*6/uL (4.40-5.60); RDW 13.3 % (11.5-14.5); WBC 16.68 10*3/uL (4.50-10.00)
--- NOTE | 2025-02-03 10:11 | P.PN ---
Subjective Progress Note Date: 02/03/25 HPI: This gentleman has what seems to be COVID-pneumonia. We were asked to see him because of possible heart failure. He sees Dr. Denis in the office. He is here with chronic hypoxic respiratory insufficiency possible pneumonia related to the recent or remote COVID infection. He is resting comfortably without symptoms. His echo revealed good systolic function. He is not in heart failure. I am recommending that we initiate him on Lasix 20 mg p.o. twice daily and discontinue IV Lasix. Will increase his metoprolol to tartrate to 50 mg twice daily. Blood pressure control is optimal. We will come back and see him as needed. Stable from cardiac standpoint. PHYSICIAL EXAM: Vitals are stable S1-S2 heard normally no significant murmurs lungs reveal scattered rhonchi abdomen and lower EXTR exam is unremarkable. IMPRESSION: 1. History of CAD with previous PCI and known occluded proximal RCA with collaterals from the left. 2. Benign hypertension. 3. COVID infection possible COVID-related pneumonia recovering with chronic hypoxic respiratory failure type picture. 4. History of hypercholesterolemia. 5. History of type 2 diabetes. RECOMMENDATIONS: Continue current medications I will increase the dose of beta- billie to metoprolol tartrate 50 mg twice daily changing from IV to oral Lasix. Will come back and see him as needed. Objective - Vital Signs Vital signs: Vital Signs Temp 97.4 F L 02/03/25 07:10 Pulse 89 02/03/25 07:10 Resp 18 02/03/25 07:10 BP 132/81 02/03/25 07:10 Pulse Ox 96 02/03/25 09:31 FiO2 Intake & Output 02/02/25 02/03/25 02/03/25 18:59 06:59 18:59 Weight 86.636 kg Other: # Voids 2 - Labs CBC & Chem 7: 02/03/25 08:16 02/03/25 04:30 Labs: Abnormal Lab Results - Last 24 Hours (Table) 02/02/25 02/02/25 02/02/25 Range/Units 12:10 17:04 21:07 WBC (4.50-10.00) 10*3/uL Immature Gran # (0.00-0.04) 10*3/uL Neutrophils # (1.80-7.70) 10*3/uL Eosinophils # (0.04-0.35) 10*3/uL BUN (9.0-27.0) mg/dL BUN/Creatinine Ratio (12.00-20.00) Ratio Glucose (70-110) mg/dL POC Glucose (mg/dL) 157 H 198 H 170 H (70-110) mg/dL 02/03/25 02/03/25 02/03/25 Range/Units 04:30 06:03 08:16 WBC 16.68 H (4.50-10.00) 10*3/uL Immature Gran # 0.19 H (0.00-0.04) 10*3/uL Neutrophils # 14.90 H (1.80-7.70) 10*3/uL Eosinophils # 0.00 L (0.04-0.35) 10*3/uL BUN 28.4 H (9.0-27.0) mg/dL BUN/Creatinine Ratio 35.50 H (12.00-20.00) Ratio Glucose 174 H (70-110) mg/dL POC Glucose (mg/dL) 193 H (70-110) mg/dL Microbiology - Last 24 Hours (Table) 02/01/25 20:47 Blood Culture - Preliminary Blood 02/01/25 23:26 Gram Stain - Preliminary Sputum
[2025-02-03 11:31] LABS: Glucose,Whole Blood 217 mg/dL (70-110)
--- NOTE | 2025-02-03 12:20 | P.PN ---
Subjective Progress Note Date: 02/03/25 Hospital Course: Patient is a 64-year-old male with chronic hypoxic respiratory failure due to long COVID, CAD with stent placement who presents with shortness of breath and rigors. Patient states that over the last 2 weeks he has had some congestion and has been taking allergy medication after a recent trip to [place]. He states his symptoms have progressed and today he began to have rigors. He does have productive cough only when using breathing treatments and discomfort with inspiration. He states he has a long history of hospitalizations due to COVID-pneumonia which caused fibrosis of his lungs, and followed up with pulmonology. He continues to take breathing treatments regularly. He is maintained on 2 to 3 L of oxygen daily. Currently he denies symptoms of chest pain, diaphoresis. Spoke with the ER physician, patient admission was accepted by internal medicine service for treatment. Subjective: Patient seen and examined at bedside. No acute events overnight. Still reports shortness of breath with some sputum production. Denies chest pain, nausea or vomiting, belly pain, diarrhea or constipation, lower extremity edema. Pertinent positives and negatives as discussed above, a complete review of systems was performed and all other systems are negative. Vitals: Signs Reviewed Physical Exam: General: nontoxic, no distress, appears at stated age Derm: warm, dry, intact Head: atraumatic, normocephalic, symmetric Eyes: EOMI, anicteric sclera Mouth: no lip lesion, mucus membranes moist Cardiovascular: S1 S2 reg, no murmur, rubs, or gallops Lungs: Crackles heard on the right side of lung, no wheezing/rhonchi/stridor, no use of accessory muscles Abdominal: soft, non-tender to palpataion, no appreciable organomegaly Extremities: no gross muscle atrophy, no edema, no contractures Neuro: Alert, Oriented, CNII-XII grossly intact, gait normal Psych: well appearing, appropriate affect Data Received Today: Pertinent Labs: WBC 16.68, hemoglobin 14.1, hematocrit 41.8, platelets 195, sodium 140, potassium 4.6, chloride 104, BUN 28.4, creatinine 0.8, glucose 174 Imaging: Chest x-ray on 02/02/2025 showed ongoing extensive diffuse interstitial and patchy bilateral infiltrates. Echocardiogram showed normal left ventricular size and systolic function. Aortic valve sclerosis with mild gradient across aortic valve. Mild to moderate dilatation of the right ventricle with moderate pulmonary hypertension. Mild mitral and moderate tricuspid regurgitation. No pericardial effusion. Assessment and Plan: In summary, patient is a 64-year-old male with acute on chronic hypoxic respiratory failure due to long COVID, CAD with stent placement who presents with shortness of breath and rigors. # Sepsis due to COVID-pneumonia #.Mild acute congestive heart failure exacerbation with preserved ejection fraction #Acute on chronic hypoxic respiratory failure secondary to suspected bacterial pneumonia # Restrictive lung disease due to history of COVID Continue Solu-Medrol 60 mg IV every 6 hours Continue ceftriaxone 2 g IV daily, completed azithromycin today Continue DuoNebs 4 times daily as needed, resume home inhaler Pending blood and sputum culture results, procalcitonin less than 0.2, troponin less than 0.012, BNP of 444 Continue losartan 50 mg daily and metoprolol tartrate 50 mg twice daily Continue to monitor vitals closely Discontinue lactated Ringer's at 130 cc an hour - IV Lasix 20 mg twice daily switched to oral Lasix 20 mg twice daily by cardiology - Wean down oxygen - Cardiology and pulmonology following #Hyperkalemia, resolved #Prerenal azotemia, as above, resolved Potassium of 4.6 Monitor morning CMP Have discontinued lactated Ringer's at 130 cc an hour #Diabetes mellitus, type 2 Holding oral medications Continue Accu-Cheks and low-dose sliding scale, monitor for hypoglycemia Chronic Medical Conditions: Hyperlipidemia CAD with stent placement to LAD Hypertension GERD Continue home medications, hold antihypertensives due to sepsis DVT ppx: Subq Lovenox 40 meq daily Code status: Full code F: IV fluids as above E: Replete as needed N: Heart healthy diet A: Ambulatory Anticipated discharge place: Home Anticipated discharge time: Likely tomorrow I have seen and evaluated the patient today. Discussed with the resident and agree with the residents finding and plan as documented in the resident's note. Changes highlighted in blue font. Objective - Vital Signs Vital signs: Vital Signs Temp 97.9 F 02/03/25 01:49 Pulse 95 02/03/25 01:49 Resp 17 02/03/25 01:49 BP 135/82 02/03/25 01:49 Pulse Ox 97 02/03/25 01:49 FiO2 Intake & Output 02/02/25 02/03/25 02/03/25 18:59 06:59 18:59 Weight 86.636 kg Other: # Voids 2 - Labs CBC & Chem 7: 02/03/25 08:16 02/03/25 04:30 Labs: Abnormal Lab Results - Last 24 Hours (Table) 02/02/25 02/02/25 02/02/25 Range/Units 12:10 17:04 21:07 POC Glucose (mg/dL) 157 H 198 H 170 H (70-110) mg/dL 02/03/25 Range/Units 06:03 POC Glucose (mg/dL) 193 H (70-110) mg/dL Microbiology - Last 24 Hours (Table) 02/01/25 20:47 Blood Culture - Preliminary Blood 02/01/25 23:26 Gram Stain - Preliminary Sputum
[2025-02-03] MEDS: FUROSEMIDE 20 MG TAB PO SCH (15:02)
--- NOTE | 2025-02-03 15:40 | P.PN ---
Subjective Progress Note Date: 02/03/25 Patient is a 64-year-old male with past medical history significant for COPD, c hronic oxygen dependence on 2 to 3 L while at home, diabetes mellitus, hypertension, hyperlipidemia, CAD with previous stent. Presented to emergency department yesterday with a chief complaint of shortness of breath, cough, and high fevers. He has had some recent travel to [place] to visit his daughter. Him and his did become sick with URI-like symptoms such as nasal congestion, runny nose, sore throat, cough, approximately 2-3 weeks ago. Symptoms initially started improve, then worsened over the last week or so. Developed severe shortness of breath, productive cough, and high fevers over the last 24 hours. On arrival to the emergency department, did test positive for COVID. Chest x-ray showing multifocal patchy airspace opacities concerning for pneumonia. CBC: WBC count 17.6, hemoglobin 18, platelets 226. CMP: Sodium 137, potassium 5.6, chloride 99, serum bicarb 26, BUN 24, creatinine 0.78, glucose 117. Lactic was 2.2 and is down to 1.2. LFTs not elevated. Troponin less than 0.012. NT proBNP not significantly elevated. Patient currently being evaluated in the emergency department. Endorses above-mentioned symptoms. States that he previously had severe COVID infection and hospitalization back in 2020, and was treated with antibodies. Currently, the patient is resting comfortably on 3 L/min nasal cannula. States he has been chronically oxygen dependent since then. 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 Uses a Trelegy inhaler with albuterol nebs [id number] and as needed albuterol rescue inhaler. He is not vaccinated for COVID. Continues to have high fevers with a Tmax of 103 F. Piggybacking Tylenol and ibuprofen. Vital signs are stable. 02/03/2025, the patient is feeling better and he seems to be less short of breath compared to yesterday. Continues to have some congested cough. Continues to be on a combination of Rocephin and Zithromax. Continues to be on IV Solu-Medrol and DuoNeb regiment [id number]. No other significant events overnight. Sputum sample is still pending. The white cell count is 16.6 with a hemoglobin 14.1 and a platelet count of 195. Electrolytes are all stable. Procalcitonin level was nonelevated. Less than 0.2. Echocardiogram was also completed and it showed preserved LV function, no significant LV dysfunction and there was mild mitral and moderate tricuspid regurgitation. No pericardial effusion. Moderate pulmonary hypertension. Objective - Vital Signs Vital signs: Vital Signs Temp 97.4 F L 02/03/25 07:10 Pulse 89 02/03/25 07:10 Resp 18 02/03/25 07:10 BP 132/81 02/03/25 07:10 Pulse Ox 96 02/03/25 09:31 FiO2 Intake & Output 02/02/25 02/03/25 02/03/25 18:59 06:59 18:59 Weight 86.636 kg Other: # Voids 2 - Exam GENERAL EXAM: Alert, 64-year-old male, on 3 L/min nasal cannula, comfortable in no apparent distress. HEAD: Normocephalic and atraumatic EYES: Normal reaction of pupils, equal size. NOSE: Clear with pink turbinates. THROAT: No erythema or exudates. NECK: No masses, no JVD. CHEST: No chest wall deformity. LUNGS: Equal air entry with no crackles, wheeze, rhonchi or dullness. No conversational dyspnea or accessory muscle use while at rest CVS: S1 and S2 normal with no audible murmur, regular rhythm. No extra heart sounds ABDOMEN: No hepatosplenomegaly, active bowel sounds, no guarding or rigidity. SPINE: No scoliosis or deformity SKIN: No rashes CENTRAL NERVOUS SYSTEM: No focal deficits, tone is normal in all 4 extremities. EXTREMITIES: There is no peripheral edema, clubbing, or cyanosis. Peripheral pulses are intact. - Labs CBC & Chem 7: 02/03/25 08:16 02/03/25 04:30 Labs: Abnormal Lab Results - Last 24 Hours (Table) 02/02/25 02/02/25 02/02/25 Range/Units 12:10 17:04 21:07 WBC (4.50-10.00) 10*3/uL Immature Gran # (0.00-0.04) 10*3/uL Neutrophils # (1.80-7.70) 10*3/uL Eosinophils # (0.04-0.35) 10*3/uL BUN (9.0-27.0) mg/dL BUN/Creatinine Ratio (12.00-20.00) Ratio Glucose (70-110) mg/dL POC Glucose (mg/dL) 157 H 198 H 170 H (70-110) mg/dL 02/03/25 02/03/25 02/03/25 Range/Units 04:30 06:03 08:16 WBC 16.68 H (4.50-10.00) 10*3/uL Immature Gran # 0.19 H (0.00-0.04) 10*3/uL Neutrophils # 14.90 H (1.80-7.70) 10*3/uL Eosinophils # 0.00 L (0.04-0.35) 10*3/uL BUN 28.4 H (9.0-27.0) mg/dL BUN/Creatinine Ratio 35.50 H (12.00-20.00) Ratio Glucose 174 H (70-110) mg/dL POC Glucose (mg/dL) 193 H (70-110) mg/dL Microbiology - Last 24 Hours (Table) 02/01/25 20:47 Blood Culture - Preliminary Blood 02/01/25 23:26 Gram Stain - Preliminary Sputum Assessment and Plan Assessment: Acute COVID-infection exacerbating the patient's chronic lung disease which include a combination of COPD and 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 Oxygen dependent post COVID-19 related pneumonia/fibrosis. 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 and chronic hypoxemia Hypertension History of hyperlipidemia Diabetes mellitus type 2 History of CAD with previous PCI/stents Anxiety/depression Plan: Clinically better compared to yesterday Currently requiring supplemental oxygen in the form of 3 L/min nasal cannula Continue IV Solu-Medrol Continue azithromycin and Rocephin Sputum culture collected Procalcitonin level is not elevated Continue supportive care Continue of bronchodilators Symbicort inhaler, may substitute for Trelegy inhaler if made available Tylenol as needed for fevers DVT prophylaxis with Lovenox GI prophylaxis: Protonix We will continue to follow Time with Patient: Greater than 30
[2025-02-03 16:43] LABS: Glucose,Whole Blood 182 mg/dL (70-110)
[2025-02-03 20:15] LABS: Glucose,Whole Blood 232 mg/dL (70-110)
[2025-02-03] MEDS: METOPROLOL TARTRATE 50 MG TAB PO SCH (22:03)
[2025-02-04 06:33] LABS: Glucose,Whole Blood 167 mg/dL (70-110)
[2025-02-04 08:05] VITALS: BP 144/87; PULSE 71; RESP 17; TEMP 97.5
[2025-02-04 08:36] LABS: BUN/Creat Ratio 55.33 Ratio (12.00-20.00); Blood Urea Nitrogen 33.2 mg/dL (9.0-27.0); Calcium 9.4 mg/dL (8.7-10.3); Carbon Dioxide 26.9 mmol/L (21.6-31.8); Chloride 102 mmol/L (96-109); Glucose 167 mg/dL (70-110); Sodium 137 mmol/L (135-145)
[2025-02-04 11:13] LABS: Glucose,Whole Blood 427 mg/dL (70-110)
--- NOTE | 2025-02-04 14:46 | P.DS ---
Providers Date of admission: 02/01/25 22:23 Expected date of discharge: 02/04/25 Attending physician: Kalpesh Kuamri MD Consults: 02/01/25 22:23 Consult Physician Routine Consulting Provider: Jean Denis Consult Reason/Comments: chf Do you want consulting provider notified?: Yes 02/01/25 22:25 Consult Physician Routine Consulting Provider: Amanda Dixon Consult Reason/Comments: copd Do you want consulting provider notified?: Yes Primary care physician: Ej Ordoñez [facility] Hospital Course: Hospital course Patient is a 64-year-old male with chronic hypoxic respiratory failure due to long COVID, CAD with stent placement who presents with shortness of breath and rigors. Patient states that over the last 2 weeks he has had some congestion and has been taking allergy medication after a recent trip to [place]. He states his symptoms have progressed and today he began to have rigors. He does have productive cough only when using breathing treatments and discomfort with inspiration. He states he has a long history of hospitalizations due to COVID-pneumonia which caused fibrosis of his lungs, and followed up with pulmonology. He continues to take breathing treatments regularly. He is maintained on 2 to 3 L of oxygen daily. Currently he denies symptoms of chest pain, diaphoresis. Spoke with the ER physician, patient admission was accepted by internal medicine service for treatment. Initial chest x-ray showed diffuse patchy airspace opacities concerning for pneumonia. EKG shows sinus tachycardia with ventricular rate of 129 bpm, QTc 410 ms. No signs of ST elevation or depression. Chest x-ray on 02/02/2025 showed ongoing extensive diffuse interstitial and patchy bilateral infiltrates. Echocardiogram showed normal left ventricular size and systolic function. Aortic valve sclerosis with mild gradients across aortic valve. Mild to moderate dilatation of the right ventricle with moderate pulmonary hypertension. Mild mitral and moderate tricuspid regurg. No pericardial effusion. Patient was started on azithromycin 500 mg IV and ceftriaxone 2 g IV daily. Troponin less than 0.012, BNP 444, procalcitonin less than 0.2. Patient tested positive for COVID-19. His symptoms improved over the course of hospitalization. Patient is stable to be discharged back home on 02/04/2025. Patient will follow-up with Dr. Cisneros and primary care physician 1 to 2 days after discharge. A referral to the pulmonary hypertension clinic at [facility] was provided for the patient. Patient's antibiotic course will total 8 days, extended due to underlying lung disease. He is also discharged on prednisone taper. Physical exam GENERAL: This is a 64-year-old in no apparent distress at the time of examination. Pleasant and cooperative. HEENT: Head is atraumatic, normocephalic. Pupils are equal, round, and reactive to light. Sclerae anicteric. Conjunctivae are clear. Mucus membranes of the m outh are moist. Neck is supple. RESPIRATORY: Clear to auscultation. No wheezes, rales, or rhonchi. No use of accessory muscles. Patient maintaining oxygen saturation greater than 92%. No chest wall tenderness is noted on palpation or with deep breathing. CARDIOVASCULAR: Regular rate and rhythm. S1 and S2 noted. No systolic or diastolic murmur auscultated. No JVD noted. No S3 or S4 noted. GASTROINTESTINAL: No distention noted. Abdomen soft and round. Normal active bowel sounds auscultated x 4 quadrants. No pain or tenderness noted upon palpation. INTEGUMENTARY: No cyanosis. No jaundice. No rashes noted. No cellulitis noted. EXTREMITIES: 2+ peripheral pulses. No evidence of peripheral edema. No calf tenderness noted. NEUROLOGIC: Cranial nerves II-XII intact. PSYCHIATRIC: Awake, alert, and oriented X 3. Appropriate affect. Intact judgement and insight. Discharge diagnosis Sepsis due to bacterial pneumonia, resolved COVID-19 Restrictive lung disease due to history of COVID Mild acute congestive heart failure exacerbation with preserved ejection fraction Acute on chronic hypoxic respiratory failure Class III pulmonary hypertension Hyperkalemia resolved Prerenal azotemia resolved Type 2 diabetes mellitus Hyperlipidemia Coronary artery disease with stent placement to LAD Hypertension GERD I saw and evaluated the patient during the gifford and critical portions of this encounter, and discussed the case in detail with the resident author of this note, I agree with the Assessment and Plan, and my changes, if any, are highlighted in blue. A total of 40 minutes was spent on this discharge. Plan - Discharge Summary New Discharge Prescriptions: New predniSONE See Taper PO DAILY 20 Days #50 tab Cefdinir 300 mg PO Q12HR 5 Days #10 cap Continue Ezetimibe [Zetia] 10 mg PO DAILY Aspirin EC [Ecotrin Low Dose] 81 mg PO DAILY #30 tablet. Thiamine HCl [Vitamin B-1] 100 mg PO DAILY Omeprazole 40 mg PO PC-SUPPER Losartan Potassium 100 mg PO DAILY Metoprolol Tartrate [Lopressor] 50 mg PO BID Nitroglycerin Sl Tabs [Nitrostat] 0.4 mg SUBLINGUAL Q5M PRN #25 tab PRN Reason: Chest Pain Montelukast [Singulair] 10 mg PO DAILY Rosuvastatin Calcium 20 mg PO DAILY Fluticasone/Umeclidin/Vilanter [Trelegy Ellipta 200-62.5-25] 1 puff INHALATION RT-DAILY Albuterol Sulfate [Albuterol Sulfate Hfa] 1 puff INHALATION RT-Q4H PRN PRN Reason: Shortness Of Breath Discharge Medication List Ezetimibe [Zetia] 10 mg PO DAILY 01/05/16 [History] Aspirin EC [Ecotrin Low Dose] 81 mg PO DAILY #30 tablet. 01/06/16 [Rx] Losartan Potassium 100 mg PO DAILY 05/16/20 [History] Omeprazole 40 mg PO PC-SUPPER 05/16/20 [History] Thiamine HCl [Vitamin B-1] 100 mg PO DAILY 05/16/20 [History] Metoprolol Tartrate [Lopressor] 50 mg PO BID 05/17/20 [History] Nitroglycerin Sl Tabs [Nitrostat] 0.4 mg SUBLINGUAL Q5M PRN #25 tab 05/18/20 [Rx] Fluticasone/Umeclidin/Vilanter [Trelegy Ellipta 200-62.5-25] 1 puff INHALATION RT-DAILY 03/10/24 [History] Montelukast [Singulair] 10 mg PO DAILY 03/10/24 [History] Rosuvastatin Calcium 20 mg PO DAILY 03/10/24 [History] Albuterol Sulfate [Albuterol Sulfate Hfa] 1 puff INHALATION RT-Q4H PRN 02/02/25 [History] Cefdinir 300 mg PO Q12HR 5 Days #10 cap 02/04/25 [Rx] predniSONE See Taper PO DAILY 20 Days #50 tab 02/04/25 [Rx] Follow up Appointment(s)/Referral(s): Ej Navarro MD [Primary Care Provider] - 1-2 days (Office is not answering at time of discharge. Please call for follow-up appointment.) Amanda Dixon MD [STAFF PHYSICIAN] - 03/14/25 1:30 pm ([facility] Dr. Gordillo) Giorgi Meyer MD [REFERRING] - 1 Week (Office stated to have patient call for appointment.) Activity/Diet/Wound Care/Special Instructions: Please see below information for pulmonary hypertension clinic at [facility] Pulmonary Hypertension Clinic at [facility] [phone] Giorgi Meyer MD Please see your primary care physician to discuss about pneumococcal vaccinations Discharge Disposition: HOME SELF-CARE
--- NOTE | 2025-02-04 16:52 | P.PN ---
Subjective Progress Note Date: 02/04/25 Patient is a 64-year-old male with past medical history significant for COPD, c hronic oxygen dependence on 2 to 3 L while at home, diabetes mellitus, hypertension, hyperlipidemia, CAD with previous stent. Presented to emergency department yesterday with a chief complaint of shortness of breath, cough, and high fevers. He has had some recent travel to [place] to visit his daughter. Him and his did become sick with URI-like symptoms such as nasal congestion, runny nose, sore throat, cough, approximately 2-3 weeks ago. Symptoms initially started improve, then worsened over the last week or so. Developed severe shortness of breath, productive cough, and high fevers over the last 24 hours. On arrival to the emergency department, did test positive for COVID. Chest x-ray showing multifocal patchy airspace opacities concerning for pneumonia. CBC: WBC count 17.6, hemoglobin 18, platelets 226. CMP: Sodium 137, potassium 5.6, chloride 99, serum bicarb 26, BUN 24, creatinine 0.78, glucose 117. Lactic was 2.2 and is down to 1.2. LFTs not elevated. Troponin less than 0.012. NT proBNP not significantly elevated. Patient currently being evaluated in the emergency department. Endorses above-mentioned symptoms. States that he previously had severe COVID infection and hospitalization back in 2020, and was treated with antibodies. Currently, the patient is resting comfortably on 3 L/min nasal cannula. States he has been chronically oxygen dependent since then. He does follow with Dr. Dumont as his major account manager. Uses a Trelegy inhaler with albuterol nebs [id number] and as needed albuterol rescue inhaler. He is not vaccinated for COVID. Continues to have high fevers with a Tmax of 103 F. Piggybacking Tylenol and ibuprofen. Vital signs are stable. 02/03/2025, the patient is feeling better and he seems to be less short of breath compared to yesterday. Continues to have some congested cough. Continues to be on a combination of Rocephin and Zithromax. Continues to be on IV Solu-Medrol and DuoNeb regiment [id number]. No other significant events overnight. Sputum sample is still pending. The white cell count is 16.6 with a hemoglobin 14.1 and a platelet count of 195. Electrolytes are all stable. Procalcitonin level was nonelevated. Less than 0.2. Echocardiogram was also completed and it showed preserved LV function, no significant LV dysfunction and there was mild mitral and moderate tricuspid regurgitation. No pericardial effusion. Moderate pulmonary hypertension. On 02/04/2025, the patient is feeling better. Less short of breath. No new complaints otherwise for now. Sputum sample was positive for strep pneumo and the patient was covered with a combination of Rocephin and Zithromax. He also was positive for COVID-19. The patient can be discharged home on a prednisone burst taper and a course of cefdinir. No pleurisy. No hemoptysis. Cough and congestion subsided. BUN 33 with a creatinine of 0.6. Sodium levels at 137 and a potassium level is at 5.0. Objective - Vital Signs Vital signs: Vital Signs Temp 97.5 F L 02/04/25 07:52 Pulse 71 02/04/25 07:52 Resp 17 02/04/25 07:52 BP 144/87 02/04/25 07:52 Pulse Ox 94 L 02/04/25 08:37 FiO2 Intake & Output 02/03/25 02/04/25 02/04/25 18:59 06:59 18:59 Output Total 1 Balance -1 Weight 85 kg Output: Urine 1 Other: Voiding Method Toilet # Voids 1 # Bowel Movements 1 - Exam GENERAL EXAM: Alert, 64-year-old male, on 3 L/min nasal cannula, comfortable in no apparent distress. HEAD: Normocephalic and atraumatic EYES: Normal reaction of pupils, equal size. NOSE: Clear with pink turbinates. THROAT: No erythema or exudates. NECK: No masses, no JVD. CHEST: No chest wall deformity. LUNGS: Equal air entry with no crackles, wheeze, rhonchi or dullness. No c onversational dyspnea or accessory muscle use while at rest CVS: S1 and S2 normal with no audible murmur, regular rhythm. No extra heart sounds ABDOMEN: No hepatosplenomegaly, active bowel sounds, no guarding or rigidity. SPINE: No scoliosis or deformity SKIN: No rashes CENTRAL NERVOUS SYSTEM: No focal deficits, tone is normal in all 4 extremities. EXTREMITIES: There is no peripheral edema, clubbing, or cyanosis. Peripheral pulses are intact. - Labs CBC & Chem 7: 02/03/25 08:16 02/04/25 03:24 Labs: Abnormal Lab Results - Last 24 Hours (Table) 02/03/25 02/03/25 02/03/25 Range/Units 11:30 16:42 20:14 BUN (9.0-27.0) mg/dL BUN/Creatinine Ratio (12.00-20.00) Ratio Glucose (70-110) mg/dL POC Glucose (mg/dL) 217 H 182 H 232 H (70-110) mg/dL 02/04/25 02/04/25 02/04/25 Range/Units 03:24 06:31 11:12 BUN 33.2 H (9.0-27.0) mg/dL BUN/Creatinine Ratio 55.33 H (12.00-20.00) Ratio Glucose 167 H (70-110) mg/dL POC Glucose (mg/dL) 167 H 427 H (70-110) mg/dL Microbiology - Last 24 Hours (Table) 02/01/25 23:26 Gram Stain - Preliminary Sputum Sputum Culture - Preliminary Streptococcus pneumoniae 02/01/25 20:47 Blood Culture - Preliminary Blood Assessment and Plan Assessment: Acute COVID-infection exacerbating the patient's chronic lung disease which include a combination of COPD and 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 The patient was also superinfection as the patient has been found to have strep pneumoniae sputum. Rule out streptococcal tracheobronchitis and/or superimposed pneumonia. Acute dyspnea, secondary to above, improving Chronic obstructive pulmonary disease, based on previous spirometry from 2022, the patient has an FEV1 of 47% of predicted, FVC of 38% of predicted and his spirometry essentially restricted with an FEV1/FVC ratio of 95. Oxygen dependent post COVID-19 related pneumonia/fibrosis. 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 and chronic hypoxemia Hypertension History of hyperlipidemia Diabetes mellitus type 2 History of CAD with previous PCI/stents Anxiety/depression Plan: Clinically better compared to yesterday, and the patient seems to be much improved Currently requiring supplemental oxygen in the form of 3 L/min nasal cannula Discontinued IV Solu-Medrol and IV antibiotics and put the patient on a course of cefdinir and a prednisone burst taper the patient can be discharged home to[facility] on outpatient basis Continue oxygen therapy Tylenol as needed for fevers DVT prophylaxis with Lovenox GI prophylaxis: Protonix We will continue to follow on outpatient basis
== END 2025-02-04 16:27 | disposition home or self-care (01) | DRG 871 ==
LOC: EC 20:27 → 3SCARD 22:23 → 4SSUR 02-02 16:32
PROVIDERS: ADMIT Internal Medicine; ATTEND Internal Medicine
DX: A41.89 Other specified sepsis (principal); I50.33 Acute on chronic diastolic (congestive) heart failure; J12.82 Pneumonia due to coronavirus disease 2019; U07.1 COVID-19; J15.9 Unspecified bacterial pneumonia; I27.20 Pulmonary hypertension, unspecified; J44.0 Chronic obstructive pulmonary disease with (acute) lower respiratory infection; I11.0 Hypertensive heart disease with heart failure; E11.9 Type 2 diabetes mellitus without complications; F32.A Depression, unspecified; I08.3 Combined rheumatic disorders of mitral, aortic and tricuspid valves; J96.11 Chronic respiratory failure with hypoxia; J44.1 Chronic obstructive pulmonary disease with (acute) exacerbation; J45.901 Unspecified asthma with (acute) exacerbation; I27.23 Pulmonary hypertension due to lung diseases and hypoxia; J84.10 Pulmonary fibrosis, unspecified; Z79.4 Long term (current) use of insulin; Z28.310 Unvaccinated for COVID-19; E78.5 Hyperlipidemia, unspecified; E87.5 Hyperkalemia; E87.6 Hypokalemia; J98.4 Other disorders of lung; E78.00 Pure hypercholesterolemia, unspecified; F41.9 Anxiety disorder, unspecified; R00.0 Tachycardia, unspecified; I25.10 Atherosclerotic heart disease of native coronary artery without angina pectoris; K21.9 Gastro-esophageal reflux disease without esophagitis; Z79.82 Long term (current) use of aspirin; Z79.899 Other long term (current) drug therapy; Z82.49 Family history of ischemic heart disease and other diseases of the circulatory system; Z87.01 Personal history of pneumonia (recurrent); Z95.5 Presence of coronary angioplasty implant and graft; Z99.81 Dependence on supplemental oxygen; Z98.42 Cataract extraction status, left eye; Z98.41 Cataract extraction status, right eye
CPT/HCPCS: 36415; 71045; 80048; 80053; 82803; 83605; 83735; 83880; 84145; 84484; 85025; 85379; 85610; 85730; 87040; 87070; 87077; 87186; 87205; 87449; 87636; 93005; 93306; 94640; 94760; 96361; 96365; 96366; 96367; 96368; 96372; 96375; 96376; 99291